=== PATIENT | male | born 1960 | race African-American/Black ===

== ENCOUNTER 2025-02-27 18:25 | Inpatient (IN) | payer OTHER, SELFPAY ==
[2025-02-27] VITALS (21 sets, daily range): BP systolic 137–174; BP diastolic 91–134; BMI 39.8; BMI 40.9
--- NOTE | 2025-02-27 13:55 | ED.GENMED ---
History of Present Illness
General
Chief Complaint: Cough
Source: patient
Exam Limitations: none
Time Seen by Provider: 02/27/25 13:46
History of Present Illness
History of Present Illness:
64-year-old male complaining ongoing cough some shortness of breath over the last weeks. No fever no chest pain no other complaints. However some chest pain with coughing only. Patient has history of hypertension. Does not take his meds.
Past History
Past History
ED Past Medical History: HTN
Social History
Tobacco: Non-smoker
Living: with family
Review of Systems
Review of Systems
All Other Systems: Not applicable
Constitutional: Denies fever
Respiratory: Denies hemoptysis
ABD/GI: Reports no symptoms
Phy Exam
Physical Exam
Physical Exam:
GENERAL: Alert and oriented in no apparent distress
EYE: Orbits normal.
NECK: Supple, no significant adenopathy.
ENT: Pharynx without erythema. No drooling no stridor. Slight hoarseness to his voice
CARDIAC: Regular rate and rhythm without any obvious murmurs.
LUNGS: Slight distant breath sounds with mild expiratory wheezing and rhonchi. No retractions no distress
ABDOMEN: Soft, without focal tenderness or distention. Elevated BMI
NEUROLOGICAL: Alert and oriented , grossly non-focal
SKIN: Warm and dry, no rash or lesion, no discoloration, skin intact.
MUSCULOSKELETAL: No edema,no deformity.Good color
PSYCH: Normal and appropriate interaction.
Course
Orders/Labs/Results
Orders:
Orders
02/27/25 11:59
EKG [Electrocardiogram (*1)] Urgent
Reason for Study: Chest Pain
EKG- Treatment ONCE
02/27/25 14:08
CBC/With Diff [Complete Blood Count/With Diff] Urgent
COVID-19 Antigen Urgent
Source: Nasal Swab
Comprehensive Metabolic Panel Urgent
Magnesium Urgent
Comment: ADD ON
Influenza A+B Rapid Molecular Urgent
MINO Source: Nasal Swab
Specimen Description:
02/27/25 14:47
CXR2 [CR Chest - 2 Views ] Urgent
Comment:
Reason For Exam: cough
02/27/25 Dinner
Cholesterol Lowering
At Your Request: Limited Participation
Cholesterol Lowering: Sodium, 2 Gram
02/27/25 16:57
Labetalol HCl [Trandate] 10 mg IV NOW STA
02/27/25 17:12
NT-proBNP Urgent
Comment: ADD ON
Troponin I Urgent
02/27/25 17:30
Admit/Transfer Patient As Directed
Co-Sign Provider:
Level of Care: Inpatient admission
Assign to:: IMU- Intermediate Care
Physician / Group: hospitalist--Carlos
Diagnosis: cough
Reason for Hospitalization: HTN requiring IV meds-cardiac and pulm workup
Expected length of stay greater than two midnights?: Yes
ELOS- Estimated Length of Stay in days: 3
I certify the patient meets the requirements for IP care: Yes
PRN Pain Medication Management As Directed
May give lesser potent ordered pain med per pt: Yes
preference::
Protocol:: Medication orders for pain may be administered in a
manner that supports deferring to patient preference
when the pt is:
- Requesting an ordered lesser potent pain medication.
Least to most potent pain medications are defined
as: acetaminophen < NSAID < tramadol < opioids
(morphine, oxycodone, hydromorphone).
- Requesting a lesser dose of the same medication IF
ORDERED.
- Requesting a less intrusive route of administration
if both routes are prescribed by the provider (PO <
IV).
02/27/25 17:31
Code Status As Directed
Resuscitation Status: Full Code
02/27/25 17:36
Add On- LAB Stat
Comments:: Please add to specimen already in lab. Thanks!
Tests Added?: Magnesium and BNP
02/27/25 19:48
Electrocardiogram (*1) Q6H
Reason for Study: Chest Pain
Comment: at admission and Q6H x 2 (3 total), to be done with each troponin
Troponin I Q6H
Comment: at admission & every 6 hours x 2 (3 total), ECG to be done with each level
Enoxaparin Sodium [Lovenox] 40 mg SC QPM
Furosemide [Lasix] 40 mg IV BID AT 0800,1600
02/27/25 19:48
Echo 2D MMode Color/Doppler Routine
Reason for Study: heart failure
HF DIETARY CONSULT Routine
HF EDUCATOR CONSULT Routine
Comment:
Activity As Directed
Activity Level: Out of Bed-Early Mobility
Intake/ Output As Directed
Frequency: Per unit guidelines
Old Records Request [Obtain Records] As Directed
Dates of Information to be Released: last 2-3 months
Type of Information Requested: Discharge Summary
ECG/Cardiology Results
H&P
Obtain Records from: [facility]
Patient Education As Directed
Type: CHF folder
Comment: give on admission. Document in Interdisciplinary Education record
Sleep Apnea Assessment by RN As Directed
Comment:
Physician Instructions:
Vital Signs As Directed
Frequency: Other
Additional Instructions:: Q12 or per unit guidelines if more frequent.
Weight As Directed
Frequency: Daily
Type of Scale: Standing Scale
Comment: Daily morning weight. If unable to stand, use balanced bed scale.
Weight As Directed
Frequency: Once
Type of Scale: Standing Scale
Comment: Upon Admission. If unable to stand, use balanced bed scale.
Pulse Ox/cont/shift [RESP] Routine
Quantity: 1
Special Instructions: Daily pulse oximetry at rest. If greater than 92% at rest also obtain pulse oximetry
while ambulating as tolerated.
Pulse Ox/nocturnal-trend w prt [RESP] Routine
Quantity: 1
Desired Oxygen Setting: >93%
Pt Eval And Treat Routine
Activity Level: Out of Bed-Early Mobility
DX Deep Vein Thrombosis Video Routine
02/28/25 01:48
Electrocardiogram (*1) Q6H
Reason for Study: Chest Pain
Comment: at admission and Q6H x 2 (3 total), to be done with each troponin
Troponin I Q6H
Comment: at admission & every 6 hours x 2 (3 total), ECG to be done with each level
02/28/25 06:00
Cardiovascular Evaluation IN AM
Complete Blood Count/No Diff IN AM
Comprehensive Metabolic Panel IN AM
Magnesium IN AM
NT-proBNP IN AM
TSH Reflex To Free T4 IN AM
US Renal Artery IN AM
Comment:
Reason For Exam: uncontrolled HTN
02/28/25 07:48
Electrocardiogram (*1) Q6H
Reason for Study: Chest Pain
Comment: at admission and Q6H x 2 (3 total), to be done with each troponin
Troponin I Q6H
Comment: at admission & every 6 hours x 2 (3 total), ECG to be done with each level
Abnormal Lab Results
02/27/25
14:08
MCV 76.6 L fL
(80.0-94.0)
MCH 26.9 L pg
(27.0-31.0)
MPV 11.6 H fL
(7.4-10.4)
Total Bilirubin 2.6 H mg/dl
(0.2-1.3)
02/27/25 14:08
02/27/25 14:08
Vital Signs
Initial and Last Documented VS:
Initial Vital Signs
Temp Pulse Resp BP Pulse Ox
98 F 85 16 160/118 96
02/27/25 12:05 02/27/25 12:05 02/27/25 12:05 02/27/25 12:05 02/27/25 12:05
Last Documented Vital Signs
Temp Pulse Resp BP Pulse Ox
98.2 F 69 14 152/134 98
02/27/25 16:22 02/27/25 19:47 02/27/25 19:47 02/27/25 19:47 02/27/25 19:47
MDM/Problems Addressed
Differential Diagnosis Includes:
Patient complaining of 4 days of cough. In the triage note said 4 weeks per patient states 4 days worse at night. Difficulty sleeping. Chest pain and shortness of breath with coughing but not at baseline. Does not take any current medications.
Is poor at seeing physicians. No hemoptysis no pleuritic pain
*Pulse Oximetry
SaO2: 90
Oxygen Mode of Delivery: Room air
Patient hypoxic: no
*EKG
Interpreted by ED Provider?: Yes
Interpretation: abnormal
Comparison EKG: no comparison EKG present
Heart Rate: 85
Rate: normal
Rhythm: sinus
[place]: left axis deviation
Interval: normal interval
QRS Pattern: normal QRS
Ischemia: non-specific ST changes
*Critical Care Note
Total Time (30-74mins, 75-104mins- exclusive of procedures): Not Applicable
Update Note
Update Note:
Patient with ongoing significant diastolic hypertension. Cardiomegaly on x-ray. Warrants inpatient management. Interestingly after admission he had a brief run of V. tach. This was communicated with the admitting hospitalist by the nurse
ED Attending Note
-
Portions of this chart may have been created with voice recognition software.� Occasional wrong word or��sound alike� substitutions may have occurred due to the inherent limitations of voice recognition software.
Discharge Plan
Departure
Patient Disposition: Admit
Date of Disposition: 02/27/25
Time of Disposition: 16:59
Presentation/result/management discussed w/ accepting MD/DO: Hospitalist
Discharge Problem:
Hypertensive urgency, Cardiomegaly, Episode of ventricular tachycardia
Interventions
Interventions:
*Risk Screen - Suicide Last Done: 02/27/25 12:07
*General Assessment Last Done: 02/27/25 13:54
*Neglect/Abuse Screening Last Done: 02/27/25 12:07
*ED- Fall Risk Assessment Last Done: 02/27/25 13:54
*ED COVID-19 Vaccine History Last Done: 02/27/25 13:54
*Nursing Disposition Last Done: 02/27/25 19:15
ED- Pulmonary Assessment Last Done: 02/27/25 17:03
Discharge Date and Time
Discharge Date/Time: 02/27/25 19:58
[2025-02-27 14:17] LABS: Hematocrit 41.5 % (39.0-52.0); Hemoglobin 14.6 g/dL (13.0-18.0); Mean Corp Hgb Conc. 35.2 g/dL (33.0-37.0); Mean Corpuscular Volume 76.6 fL (80.0-94.0); Nucleated Red Blood Cells % 0 % (-); Platelet Count 217 10^3/uL (130-400); Red Cell Dist. Width 14.4 % (11.5-14.5)
[2025-02-27 14:40] LABS: ALT (SGPT) 37 U/L (0-50); AST (SGOT) 31 U/L (17-59); Albumin 4.0 g/dl (3.5-5.0); Alkaline Phosphatase 88 U/L (38-126); Blood Urea Nitrogen 13 mg/dl (9-20); Calcium 8.9 mg/dl (8.4-10.2); Carbon Dioxide 27 mmol/L (22-30); Chloride 107 mmol/L (98-107); Estimated Creatinine Clearance 104 ml/min; Glucose 95 mg/dl (70-99); Potassium 3.8 mmol/L (3.5-5.1); Sodium 141 mmol/L (135-145); Total Protein 6.5 g/dl (6.3-8.2); eGFR > 60.00
[2025-02-27 14:43] LABS: COVID-19 Antigen Negative (Negative)
[2025-02-27] MEDS: TRANDATE 10 MG IV (17:16)
--- NOTE | 2025-02-27 17:37 | HPS.HSE ---
Family Physician
-
Family Physician: None listed
Chief Complaint
-
Cough and shortness of breath
History of Present Illness
Patient is a 64-year-old male with a past medical history significant for presumed essential hypertension who states that he has been coughing for few weeks with yellow phlegm. Patient states that he is also short of breath and cannot lie flat in
bed. He states that he has been cold but no fevers. It is unclear if he has had any weight gain, he denies, but his brbfts-uz-nhs states that he has had some. She states that he is better during the day but not at night when he lies down. She
has been giving him cough medicine which is not helping. She also states that he was hospitalized at [facility] approximately a month to a month and a half ago and had a stress test which was reportedly normal.
She also states that he does have a medical card but his insurance apparently has been cut off for an unknown reason. His [id number] Nery (goes by [employer]) has been actively working to get his medical card reinstated.
He is found to have hypertensive urgency and is being admitted.
Medical History
Past Medical History
Past Medical History: Reports HTN
Past Surgical History: Reports Other
Additional Past Surgical History:
Hip fracture status post repair with a plate
Social History
Tobacco: Non-smoker
Alcohol: None
Drug: None
Living: With Family
Family History
Family History: Cancer
Allergies / Home Medications
Allergies reflects when Allergies were last updated in [employer].
Home Medications with original date entered in [employer]
Allergy/Medication List:
Allergies
Allergy/AdvReac Type Severity Reaction Status Date / Time
Penicillins Allergy Swelling Verified 02/27/25 17:16
Patient takes no medications at home.
Review of Systems
-
History Source: Patient and Family
A 12 point ROS was completed and negative except as noted: Yes
Constitutional: Reports Chills; Denies Fever
EENT: Reports No Symptoms
Respiratory: Reports Cough, Trouble Breathing and Other (Yellow phlegm)
Cardiac: Reports Chest Pain (Patient states it feels like someone is 'hitting him in the chest'); Denies Palpitations
Abdomen/GI: Reports Constipated; Denies Abdominal Pain, Nausea, Vomiting or Diarrhea
: Reports No Symptoms
Musculoskeletal: Reports Edema
Skin: Reports No Symptoms
Neurological: Reports Headache; Denies Dizzy
Psych: Reports No Symptoms
Physical Exam
Vital Signs
Vital Signs
Temp Pulse Resp BP Pulse Ox
98.2 F 93 20 144/105 100
02/27/25 16:22 02/27/25 17:16 02/27/25 17:15 02/27/25 17:22 02/27/25 17:15
Physical Exam
General: Well Developed, Well Nourished, No Apparent Distress and Other (Appears to have some developmental delay)
HEENT: NormoCephalic, Anicteric and Atraumatic; No Oxygen
Respiratory: Clear and Other (Cough); No Wheezes, Rales, Rhonchi or Crackles
Cardiac: S1/S2 and Regular Rhythm; No Murmur
GI: Soft, Non Tender, Non Distended and Normal Bowel Sounds
Musculoskeletal: No Clubbing and No Cyanosis; No No Edema (Trace to 1+ edema bilaterally)
Skin: Warm
Neuro: Awake
Psych: Calm
Laboratory Results
-
02/27/25 14:08
02/27/25 14:08
Laboratory Results
Total Bilirubin 2.6 mg/dl (0.2-1.3) H 02/27/25 14:08
AST 31 U/L (17-59) 02/27/25 14:08
ALT 37 U/L (0-50) 02/27/25 14:08
Alkaline Phosphatase 88 U/L (38-126) 02/27/25 14:08
Impression/Plan
-
Patient is a 64-year-old male
Hypertensive urgency--patient's family member states he does have a history of hypertension and should be on an 'orange pill' which he is not taking--blood pressure has been ranging here 140s to 160s systolic over greater than 100 diastolic--ADMIT
to IMU--received IV labetalol and starting IV Lasix--check echocardiogram as heart appears enlarged on chest x-ray--pro-BNP 4890--may need another BP med as well--check renal US for renal artery stenosis--trend troponin
cough--no signs of pneumonia, white count normal, no fevers--could be mild congestive heart failure especially since worse at night with elevated proBNP--COVID and flu are negative--I see no need for antibiotics at this time--Will add nebulizers to
see if that will help--patient claims he has a history of asthma--he is not hypoxic--Will also check nocturnal pulse ox as patient has a body habitus consistent with obstructive sleep apnea
DVT prophylaxis--subcu Lovenox
CODE STATUS--full code
Of notepatient's [id number] Nery ([phone]) is who he lives with--and has knowledge of his medical history--states that he was in [facility] approximately 1 to 1-1/2 months ago and had a 'negative workup' including cardiac catheterization
at that time--will try to get records
[2025-02-27 17:43] LABS: Troponin I 0.016 ng/ml
[2025-02-27 18:13] LABS: Magnesium 1.8 mg/dl (1.6-2.3)
[2025-02-27] MEDS: LOVENOX 40 MG SC (20:01)
[2025-02-27] MEDS: LASIX 40 MG IV (20:01)
[2025-02-27 21:31] LABS: Troponin I 0.018 ng/ml
[2025-02-28] VITALS (16 sets, daily range): BP systolic 93–169; BP diastolic 67–127; PULSE 99; O2SAT 94; BMI 40.9
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
[2025-02-28 04:45] LABS: Hematocrit 38.8 % (39.0-52.0); Hemoglobin 14.0 g/dL (13.0-18.0); Mean Corp Hgb Conc. 36.1 g/dL (33.0-37.0); Mean Corpuscular Volume 75.9 fL (80.0-94.0); Platelet Count 213 10^3/uL (130-400); Red Cell Dist. Width 14.3 % (11.5-14.5)
[2025-02-28 04:55] LABS: Troponin I 0.018 ng/ml
[2025-02-28] MEDS: TYLENOL 650 MG PO (05:54)
[2025-02-28 06:22] LABS: ALT (SGPT) 32 U/L (0-50); AST (SGOT) 29 U/L (17-59); Albumin 3.5 g/dl (3.5-5.0); Alkaline Phosphatase 68 U/L (38-126); Blood Urea Nitrogen 13 mg/dl (9-20); Calcium 8.8 mg/dl (8.4-10.2); Carbon Dioxide 28 mmol/L (22-30); Chloride 109 mmol/L (98-107); Estimated Creatinine Clearance 99 ml/min; Glucose 88 mg/dl (70-99); HDL Cholesterol 43 mg/dl; LDL Cholesterol, Calculated 78 mg/dl; Magnesium 1.8 mg/dl (1.6-2.3); Potassium 3.9 mmol/L (3.5-5.1); Sodium 141 mmol/L (135-145); Total Protein 5.9 g/dl (6.3-8.2); Very Low Density Lipoprotein 8 mg/dl (0-30); eGFR > 60.00
[2025-02-28 07:57] LABS: Hepatitis C Antibody Negative (Negative)
[2025-02-28 09:17] LABS: Troponin I 0.017 ng/ml
[2025-02-28] MEDS: LIDOCAINE 4% PATCH 1 PATCH TOPICAL (09:41)
[2025-02-28] MEDS: APRESOLINE 5 MG IV (09:42)
[2025-02-28] MEDS: LASIX 40 MG IV ×2 (09:47→17:30)
--- NOTE | 2025-02-28 11:11 | CM ---
Addendum entered by Luzmaria Meraz 02/28/25 16:52:
Patient brother came to and has POA forms and will bring to hospital tomorrow. Patient cost for medications 1$ for entresto limit of 6 pills daily and 3$ for farxiga and Jaridance limit 30 pills monthly; per month. Plan for patient to return to
patient home with sister in law, will need to send referral to [facility] for follow up of assessment/possible waiver services. CM will continue to follow for discharge planning needs.
Original Note:
Patient seen at bedside with physician in IMU. Patient and sister in law, granddaughter all present. Patient lives with his sister in law in [place] and stated she states the home is a 2 story. Patient had a CPAP but does not use at this time. Patient
is active with Annette moya per [facility] and CM updated patient sister in law. Patient is changing physicians per patient sister in law, and so does not have a current physician. Patient uses the [facility] in [place]. Patient brother Chepe
was contacted by sister in law and he stated that he is coming in to see patient here. Patient brother alleged to have a POA, CM requested POA documentation be brought in. Per nursing patient verbalized that he had concerns about sister in law.
Patient sister in law indicated that she wanted to take patient out of hospital and go to [facility] now that he had insurance. When patient was talking to physician he did not indicate that he wanted to leave a but patient shrugged
shoulders and did not answer. Patient has been living with his sister in law for the last 5/6 years but has indicated to her that he would like to live with his brother but brother is currently unable to care for him per sister in law. CM asked
about services and per sister in law they were going to go to [facility] but patient insurance was cut off. Sister in law indicated that she would be happy to have CM send referral to [facility] for review of services. CM will send referral to [facility] for assessment.
CM will continue to follow for discharge planning needs.
Plan; home with family referral to [facility] for services/assessment vs VN pending medical treatment plan
--- NOTE | 2025-02-28 11:14 | CARDSERVDEF ---
Echocardiogram with Definity completed after protocol screening completed. Allergies verified.
Patent IV site: _left AC____
IV site flushed with 0.9% NaCl pre and post administration.
Diluted bolus method utilized to enhance visualization of ventricular allen.
Total volume given: __2.0__ mL
Patient tolerated all procedures well without complications.
--- NOTE | 2025-02-28 11:19 | W.PN.HOSP.TC ---
Today's Communication/Plan
-
added IV hydralazine
await ECHO and renal US reports
cont IV diuresis
Assessment / Plan
Assessment / Plan
pt is a 64 year old male
Hypertensive urgency--patient's family member states he does have a history of hypertension and should be on an 'orange pill' which he is not taking--blood pressure has been ranging here 140s to 160s systolic over greater than 100
diastolic--received IV labetalol and starting IV Lasix--echocardiogram pending--pro-BNP 4890--may need another BP med as well--renal US pending for renal artery stenosis--trend troponin
cough--no signs of pneumonia, white count normal, no fevers--could be mild congestive heart failure especially since worse at night with elevated proBNP--COVID and flu are negative--I see no need for antibiotics at this time----patient claims he has
a history of asthma--he is not hypoxic-- nocturnal pulse ox showed 1 desaturation event of < 88%--patient has a body habitus consistent with obstructive sleep apnea, family states he should be using CPAP but pt says they took him off of it
DVT prophylaxis--subcu Lovenox
CODE STATUS--full code
Of notepatient's [id number] Nery ([phone]) is who he lives with--and has knowledge of his medical history--states that he was in [facility] approximately 1 to 1-1/2 months ago and had a 'negative workup' including cardiac catheterization
at that time--will try to get records
She is at the bedside (02/28/25) and here to take him to [facility] where his doctors are, explained he is not ready and any discharge would be AMA (he does not qualify for inpt to inpt transfer)--when I asked pt what he wanted to do (stay or go), he
shrugged his shoulders and wouldn't answer
Anticipated Discharge: 24 - 48 hours
Subjective/Interval History
-
Date of Service: February 28, 2025
pt family at bedside--stating 'we came to take him to [facility] to admit him there'
He makes faces at me (as if disgusted with his family who is visiting) when she speaks
Objective Data
-
Labs:
Laboratory Results
02/28/25
04:09
WBC 5.2
Hgb 14.0
Hct 38.8 L
Plt Count 213
Sodium 141
Potassium 3.9
Chloride 109 H
Carbon Dioxide 28
BUN 13
Creatinine 1.0
Glucose 88
Calcium 8.8
Total Bilirubin 2.8 H
AST 29
ALT 32
Alkaline Phosphatase 68
Vital Signs:
max temp for 24 hours
02/27/25
13:48 02/28/25
02:37 02/28/25
04:56
Temp 98.7 F
Actual Weight 129.4 kg 125.673 kg
Vital Signs
Temp Pulse Resp BP Pulse Ox
97.7 F 91 21 144/92 96
02/28/25 11:01 02/28/25 11:00 02/28/25 11:00 02/28/25 11:00 02/28/25 10:00
I&O
02/27/25 02/28/25 03/01/25
06:59 06:59 06:59
Output Total 3100 / 3100
Balance -3100 / -3100
Review of Systems
-
All other systems: Reviewed and negative
Respiratory: Reports Cough and Trouble Breathing
Physical Exam
-
General: Well Developed, Well Nourished and No Apparent Distress
HEENT: Normocephalic and Atraumatic; Negative Oxygen
Respiratory: Clear to Auscultation; Negative Wheezes, Rales, Rhonchi or Crackles
Cardiac: Regular Rhythm and S1/S2; Negative Murmur
GI: Soft, Nontender, Nondistended and Normal Bowel Sounds
Musculoskeletal: No Clubbing, No Cyanosis and No Edema
Neuro: Awake and Alert
Psych: Calm
--- NOTE | 2025-02-28 11:50 | CON.CAR ---
Addendum entered and electronically signed by LIU Barraza 02/28/25 15:59:
Per CDI query:
Patient has HFrEF, acute on chronic
Addendum entered and electronically signed by Se Stark MD 02/28/25 15:28:
I saw and evaluated the patient, and I provided the substantive portion of the medical decision making.
I reviewed and agree with the note by Eva Fisher and it accurately reflects our care.
I personally performed the medical decision making of the this encounter and my assessment and plan is below:
64-year-old male with hypertension, heart failure (type unknown), and ERIN who presented to the ER with a chief complaint of shortness of breath.
He was recently at [facility] with similar symptoms and was diuresed. However, it appears that he may not have continued the d/c medications. It also sounds that he had a stress test and was diagnosed with a NICMO from that.
Regardless, we may consider heart cath this admission.
For now we will cont IV diuresis and add on GDMT with case management pricing Entresto and sglt2i.
Original Note:
Consultation
Consultation Request
Date/Time Consultation Requested: 02/28/2025 11:40
Date/Time Consultation Performed: 02/28/2025 12:00
Requesting Provider: Dr. Gonzalez
Performing Provider: LIU Lowe for Dr. Stark
Reason for Consultation: Cardiomyopathy
Medical History
-
Chief Complaint: Shortness of breath
History of Present Illness:
Lionel Swenson is a 64-year-old male with hypertension, heart failure (type unknown), and ERIN who presented to the ER with a chief complaint of shortness of breath. He endorsed productive cough for yellow sputum. This has been ongoing for few
weeks. He endorsed orthopnea. No fevers at home. He was admitted with hypertensive urgency. An echocardiogram was ordered, he was found to have an LVEF of 20-25%. He had a recent admission at [facility] where he had an invasive cardiac workup
including cardiac catheterization. These records have been requested. He is not having any chest pain, shortness of breath, nor dizzines.
Past Medical History
Past Medical History: CHF (Type unknown), HTN and Other (ERIN)
Past Surgical History: Orthopedic
Social History
Tobacco: Non-Smoker
Alcohol: None
Family History
Family History: Reviewed & Not Pertinent
Allergies / Home Medications
Allergy/AdvReac Type Severity Reaction Status Date / Time
Penicillins Allergy Swelling Verified 02/27/25 17:16
Review of Systems
-
History Source: Patient
All other systems: Negative unless noted
Constitutional: Weight Gain and Fatigue
EENT: No Symptoms
Respiratory: Cough and Trouble Breathing
Cardiac: No Symptoms
Abdomen/GI: No Symptoms
: No Symptoms
Musculoskeletal: Edema
Skin: No Symptoms
Neurological: No Symptoms
Endocrine: No Symptoms
Hematologic/Lymphatic: No Symptoms
Physical Exam
Vital Signs
Temp Pulse Resp BP Pulse Ox
97.7 F 91 21 144/92 96
02/28/25 11:01 02/28/25 11:00 02/28/25 11:00 02/28/25 11:00 02/28/25 10:00
Lab Results
02/28/25 04:09
02/28/25 04:09
Troponin I 0.017 ng/ml 02/28/25 08:15
Xwr-M-Pufvktkbead Pept 4890 pg/ml 02/27/25 17:12
Physical Exam
General: Well Developed, Well Nourished, No Apparent Distress and Comfortable
HEENT: Normocephalic, Anicteric and Moist Mucous Membranes
Respiratory: Clear and Non Labored Respirations
Cardiac: S1/S2
Breast: Deferred by me
GI: Soft, Non Tender, Non Distended and Normal Bowel Sounds
Rectal: Deferred by Provider
Genito-urinary: No Costovertebral Tender
Musculoskeletal: No Clubbing and No Cyanosis
Skin: Warm and Dry
Neuro: Awake and Alert
Hematologic/Lymphatic: No Lymphadenopathy
Psych: Calm
Impression / Plan
-
I/P: 64M with hypertension, heart failure (type unknown), and ERIN who presented to the ER with a chief complaint of shortness of breath.
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
Dilated cardiomyopathy (EF 20-25%) - severe, requiring hospitalization
- Elevated proBNP with complains of orthopnea, continue diuresis with furosemide 40 mg IV twice daily this requires intensive monitoring
- Severely dilated LV and dilated RV
- Reportedly had a cardiac catheterization without acute findings at [facility], this has been requested
- GDMT as tolerated:
-ELENITA/ARB/ARNI: Start valsartan 40 mg twice daily, case management to moralez sacubitril�valsartan
-SGLT2 inhibitor: Case management to moralez
-Aldosterone agonist: Can consider
-Beta milla: Start carvedilol 6.25 mg twice daily
-Isosorbide/Hydralazine:�Defer for now
-ICD: Reassess LVEF in 3 months for determination
- Trend daily weight, I/O, and BMP with diuresis and changes in medical therapy
Hypertensive urgency
- Uncontrolled hypertension at home
- Stop hydralazine 5 mg every 4 hours
- BP management as above
Dilated aortic root, 4.2 cm
ERIN, nonadherent with CPAP
Obesity, BMI 40, he would benefit from weight loss
Data Reviewed
-
EKG: Report Reviewed by me
Radiology: Report Reviewed by me
Labs: Labs Reviewed by me
Old Records: Requested
--- NOTE | 2025-02-28 12:09 | W.PN.UPDATE ---
Update Note
Progress Note Update
ECHO with EF 20-25%
consult cards
cont diuresis
[2025-02-28] MEDS: APRESOLINE IV (12:28)
[2025-02-28] MEDS: COREG 3.125 MG PO (12:39)
[2025-02-28] MEDS: DIOVAN 40 MG PO ×2 (12:39→20:31)
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
--- NOTE | 2025-02-28 15:16 | PN.CDI ---
CDI
- -
CDI:
Physician Documentation Request
Admit Date: 02/27/25 18:25
Dear Doctor /STOKER MECHANIC ,
Please review the following and provide your response in the progress notes.
Clinical Indicators:
Pt admitted with HTN urgency/ CHF
ECHO 02/28, ' LVEF is 20-25% by visual estimation..'
Cardiology consult, ' , heart failure (type unknown)....Dilated cardiomyopathy (EF 20-25%) Elevated proBNP with complains of orthopnea, continue diuresis with furosemide 40 mg IV twice daily...Past Medical History: CHF (Type unknown)...'
Please provide further specificity regarding the most likely type and acuity of CHF you are evaluating, treating or monitoring.
Acute on Chronic Systolic CHF
Acute Diastolic CHF
Other ( please specify)
Use of terms such as suspected, likely, concern for, or probable (associated with a specific diagnosis that is being evaluated, monitored, or treated as if it exists) are acceptable and can be coded in the inpatient setting, when documented at the
time of discharge.
Thank you,
Liliya Sin RN
CDI Specialist
[facility]
Please use your independent medical judgment in providing your response.
[2025-02-28] MEDS: OMNIPAQUE 50 ML PO (17:27)
[2025-02-28] MEDS: LOVENOX 40 MG SC (17:32)
[2025-02-28] MEDS: COREG 6.25 MG PO (20:30)
[2025-02-28] MEDS: COLACE 100 MG PO (20:30)
[2025-02-28] MEDS: REMOVE LIDOCAINE PATCH 1 PATCH REMOVE (20:31)
[2025-03-01] VITALS (13 sets, daily range): BP systolic 101–165; BP diastolic 35–129; PULSE 71; BMI 39.4
--- NOTE | 2025-03-01 00:28 | PTCARENOTE ---
transported patient via stretcher to CT without issue. Relayed CT results to ROLL FORMING MACHINE SET UP OPERATOR. New orders of NPO placed. Surgery consult ordered. Patient did have small bowl movement on commode after CT scan. Assessment and vital signs as charted. Call beltre in
reach.
--- NOTE | 2025-03-01 02:41 | W.PN.UPDATE ---
Addendum entered and electronically signed by LIU Vargas (Linda) 03/01/25 02:54:
No N/V of abdominal pain.
Original Note:
Update Note
Progress Note Update
02/28/25 CT ab/pelv
Impression: There is diffuse gaseous distention of the small bowel and colon most pronounced in the sigmoid colon. There is distal tapering without definite obstructing mass or volvulus. Findings are favored to represent an ileus. A follow-up
colonoscopy should be considered to exclude a mass.
Cardiomegaly with dilation of the left ventricle.
Assessed patient on the unit. Patient AAOX3, reports he has been having 'stomach issues for a long time' Patient reports he just had small bowel movement after the CT scan. Abdomen hypoactive and distant.
Rx NPO, Sx consulted.
Patient also noted to have bradycardia and bouts of hypoxia. Patient known to have ERIN, Rx O2.
Updated plan to patient and RN
[2025-03-01 04:36] LABS: Hematocrit 41.1 % (39.0-52.0); Hemoglobin 14.7 g/dL (13.0-18.0); Mean Corp Hgb Conc. 35.8 g/dL (33.0-37.0); Mean Corpuscular Volume 75.3 fL (80.0-94.0); Platelet Count 212 10^3/uL (130-400); Red Cell Dist. Width 14.0 % (11.5-14.5)
[2025-03-01 05:04] LABS: ALT (SGPT) 34 U/L (0-50); AST (SGOT) 26 U/L (17-59); Albumin 3.6 g/dl (3.5-5.0); Alkaline Phosphatase 75 U/L (38-126); Blood Urea Nitrogen 16 mg/dl (9-20); Calcium 8.8 mg/dl (8.4-10.2); Carbon Dioxide 28 mmol/L (22-30); Chloride 105 mmol/L (98-107); Estimated Creatinine Clearance 81 ml/min; Glucose 89 mg/dl (70-99); Magnesium 1.7 mg/dl (1.6-2.3); Potassium 3.7 mmol/L (3.5-5.1); Sodium 138 mmol/L (135-145); Total Protein 6.2 g/dl (6.3-8.2); eGFR > 60.00
--- NOTE | 2025-03-01 06:13 | PTCARENOTE ---
patient heart rate dropping into 30s. Patient is asymptomatic. TT HELMINTHOLOGIST. EKG done, troponin added and drawn. Changed patient's heart monitor leads. Patient is in NSR, will occasionally go into ventricular bigeminy. HELMINTHOLOGIST aware. pulse ox stable on 2L.
continuing to monitor. call beltre in reach.
[2025-03-01 06:16] LABS: Troponin I 0.020 ng/ml
[2025-03-01] MEDS: COLACE PO ×2 (08:15→19:55)
[2025-03-01] MEDS: DIOVAN PO ×2 (08:15→19:56)
[2025-03-01] MEDS: COREG PO ×2 (08:15→18:59)
[2025-03-01] MEDS: LIDOCAINE 4% PATCH 1 PATCH TOPICAL (08:15)
[2025-03-01] MEDS: LASIX 40 MG IV ×2 (08:20→17:42)
[2025-03-01] MEDS: MIRALAX PO (08:23)
--- NOTE | 2025-03-01 08:40 | W.PN.HOSP.TC ---
Today's Communication/Plan
-
transfer to IVU
cont diuresis
OOB, ambulate
meds for BPs
Assessment / Plan
Assessment / Plan
pt is a 64 year old male
Hypertensive urgency-- much improved---received IV labetalol in ED-- cont IV Lasix--echocardiogram with EF 20-25%--pro-BNP 4890--coreg and valsartan started--renal US neg for renal artery stenosis
'new?' onset HFrEF--with exacerbation presented as cough--cont diuresis--coreg and valsartan started--transfer to IVU--had cardiac cath at [facility] < 2 months ago--awaiting records-- priced meds for d/c when ready--weights down from 129.4kg on
admission to 120.8kg today 03/01/25 (18.9 lbs off to date)
ERIN--supposed to be using CPAP--will consult respiratory--consider pulm consult
ileus--by x-ray and CT scan--no obstruction--OOB, ambulate--NPO for now
obesity--affects all aspects of care
DVT prophylaxis--subcu Lovenox
CODE STATUS--full code
02/28/25 spoke with pt brother Chepe (pt POAntwan, bringing paperwork today) and [id number] Nery--all now in agreement to keep patient here until medically stable for d/c
pt with some type of developmental delay--family states that he cannot make his own decisions.....
Anticipated Discharge: > 48 hours
Subjective/Interval History
-
Date of Service: March 01, 2025
pt doing OK--hungry--says he is passing gas and had BM yesterday 02/28
Objective Data
-
Labs:
Laboratory Results
03/01/25
04:18
WBC 6.2
Hgb 14.7
Hct 41.1
Plt Count 212
Sodium 138
Potassium 3.7
Chloride 105
Carbon Dioxide 28
BUN 16
Creatinine 1.2
Glucose 89
Calcium 8.8
Total Bilirubin 2.9 H
AST 26
ALT 34
Alkaline Phosphatase 75
Vital Signs:
max temp for 24 hours
02/28/25
22:28
Temp 98.2 F
Vital Signs
Temp Pulse Resp BP Pulse Ox
98.1 F 79 25 124/97 97
03/01/25 01:49 03/01/25 08:00 03/01/25 08:00 03/01/25 08:00 03/01/25 08:00
I&O
02/28/25 03/01/25 03/02/25
06:59 06:59 06:59
Output Total 3100 / 3100 1700 / 1700
Balance -3100 / -3100 -1700 / -1700
Review of Systems
-
All other systems: Reviewed and negative
Physical Exam
-
General: Well Developed, Well Nourished and No Apparent Distress
HEENT: Normocephalic and Atraumatic; Negative Oxygen
Respiratory: Clear to Auscultation; Negative Wheezes or Rhonchi
Cardiac: Regular Rhythm and S1/S2; Negative Murmur
GI: Soft, Nontender, Distended and Other (tympanitic); Negative Normal Bowel Sounds (hypoactive)
Musculoskeletal: No Clubbing, No Cyanosis and No Edema
Skin: Warm
Neuro: Awake
--- NOTE | 2025-03-01 09:25 | W.PN.CD ---
Today's Communication / Plan
-
IV diuresis start sglt2i tomorrow
Impression / Plan
-
I/P: 64M with hypertension, heart failure (type unknown), and ERIN who presented to the ER with a chief complaint of shortness of breath.
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
Dilated cardiomyopathy (EF 20-25%) - severe, requiring hospitalization
- Elevated proBNP with complains of orthopnea, continue diuresis with furosemide 40 mg IV twice daily this requires intensive monitoring
- Severely dilated LV and dilated RV
- Reportedly had a cardiac catheterization without acute findings at [facility], this has been requested
- GDMT as tolerated:
-ELENITA/ARB/ARNI: Start valsartan 40 mg twice daily, case management to moralez sacubitril�valsartan
-SGLT2 inhibitor: Case management to moralez
-Aldosterone agonist: Can consider
-Beta milla: Start carvedilol 6.25 mg twice daily
-Isosorbide/Hydralazine:�Defer for now
-ICD: Reassess LVEF in 3 months for determination
- Trend daily weight, I/O, and BMP with diuresis and changes in medical therapy
Hypertensive urgency
- Uncontrolled hypertension at home
- Stop hydralazine 5 mg every 4 hours
- BP management as above
Dilated aortic root, 4.2 cm
ERIN, nonadherent with CPAP
Obesity, BMI 40, affects all aspects of care he would benefit from weight loss
Subjective: breathing improved
Physical Exam
Vital Signs/Labs
Vital Signs
Temp Pulse Resp BP Pulse Ox
97.5 F 79 25 124/97 97
03/01/25 07:57 03/01/25 08:00 03/01/25 08:00 03/01/25 08:00 03/01/25 08:00
02/28/25 03/01/25 03/02/25
06:59 06:59 06:59
Actual Weight 277 lb 1 oz 266 lb 5.094 oz
03/01/25 04:18
03/01/25 04:18
Magnesium 1.7 mg/dl (1.6-2.3) 03/01/25 04:18
Triglycerides 43 mg/dl (10-149) 02/28/25 04:09
LDL Cholesterol, Calc 78 mg/dl 02/28/25 04:09
VLDL Cholesterol, Calc 8 mg/dl (0-30) 02/28/25 04:09
HDL Cholesterol 43 mg/dl 02/28/25 04:09
02/27/25 02/28/25
17:12 08:15
Nlk-H-Deeqznzynof Pept 4890 6170
LAB Results
02/27/25 02/27/25 02/28/25
17:12 20:49 04:09
Troponin I 0.016 0.018 0.018
02/28/25 03/01/25
08:15 05:41
Troponin I 0.017 0.020
Physical Exam
Constitutional: No acute distress
EENT: Anicteric
Cardiovascular: Rhythm & rate is regular
Respiratory: Respiratory effort normal
GI: Distention present
Neuro/Psych: Alert, Oriented and AO x 3
Data Reviewed
-
Date of Service: March 01, 2025
Medical Decision Making: Reviewed Test Results
EKG: Tracing Personally Visualized and interpreted (sr)
Echo: Tracing Personally Visualized and interpreted
Labs: Labs Reviewed by me
--- NOTE | 2025-03-01 11:49 | CON.GS ---
Consultation
-
Date/Time Consultation Performed: 03/01/2025 11:45
Performing Provider: Ta
Reason for Consultation: ileus
Medical History
-
Chief Complaint: abdominal distention/pain
History of Present Illness:
64 y/o male admitted 02/27/25 secondary to hypertensive urgency on 02/28/[address] imaging obtained yesterday evening d/t abdominal distention.
patient reports long standing digestive issues. he always feels like his food just 'sits there' with chronic abdominal distention/bloating. intermittent nausea and feels like he needs to induce vomiting but generally does not vomit. also reports
intermitted constipation. symptoms are a bit worse than his baseline but currently without pain and he is requesting to eat.
large BM documented yesterday evening after CT imaging
Past Medical History
Past Medical History: Other (HTN, ERIN, obesity with BMI 39)
Past Surgical History: None
Social History
Tobacco: Non-Smoker
Alcohol: None
Living: With Family
Allergies / Home Medications
Allergy/AdvReac Type Severity Reaction Status Date / Time
Penicillins Allergy Swelling Verified 02/27/25 17:16
Review of Systems
-
History Source: Patient
All other systems: Negative unless noted
A 10 point review of systems was completed, and was negative except as per HPI.
Physical Exam
Vital Signs
Temp Pulse Resp BP Pulse Ox
97.5 F 79 25 124/97 97
03/01/25 07:57 03/01/25 08:00 03/01/25 08:00 03/01/25 08:00 03/01/25 08:00
02/28/25 03/01/25 03/02/25
06:59 06:59 06:59
Actual Weight 125.673 kg 120.8 kg
Body Mass Index (BMI) 39.4
Lab Results
03/01/25 04:18
03/01/25 04:18
WBC 6.2 10^3/uL (4.8-10.8) 03/01/25 04:18
Hgb 14.7 g/dL (13.0-18.0) 03/01/25 04:18
Hct 41.1 % (39.0-52.0) 03/01/25 04:18
Plt Count 212 10^3/uL (130-400) 03/01/25 04:18
Abs Immat Gran (auto) 0.0 10^3/uL (0-0.05) 02/27/25 14:08
Neutrophils % 53.9 % (42.2-75.2) 02/27/25 14:08
Physical Exam
General: Well Developed, Well Nourished, No Apparent Distress and Comfortable (resting in hospital bed)
HEENT: Normocephalic, Anicteric and Moist Mucous Membranes
Respiratory: Non Labored Respirations
Cardiac: Regular Rhythm
GI: Soft, Non Tender, Distended (distended and tympanic) and Other (no hernias, no masses, no R/R/G)
Skin: Warm
Neuro: AO x 3
Psych: Calm
Data Reviewed
-
CT Scan: Image Personally Visualized and interpreted
Labs: Labs Reviewed by me
Assessment / Plan
-
Assessment: 64 y/o male admitted with hypertensive urgency and HFrEF ; with probable colonic ileus in setting of acute medical illness but symptoms suggestive of chronic GI dysmotility (post prandial distention, nausea, intermitted constipation for
years)
CT imaging with generalized colonic distention throughout up to level of distal sigmoid. no readily apparent mass or inflammatory process on CT imaging
oral contrast opacifies SB and approaches the distal ileum.
no radiographic or clinical signs suggestive of bowel threat/compromise. overall history is more suggestive of dysmotility than mechanical process
Plan: follow up abdominal Xray imaging today to monitor for progression of ingested oral contrast
continue bowel rest but okay for sips clear/ice chips for comfort
dulcolax suppository x1
will get GGE imaging after oral contrast clears colon to further evaluate sigmoid
[2025-03-01] MEDS: DULCOLAX 10 MG RECTAL (13:40)
--- NOTE | 2025-03-01 14:17 | PTCARENOTE ---
received pt from IMU. Pt complains of 2/10 abdominal pain, describes the pain as sharp feeling. SR on tele monitor. Oriented to room and unit. Call beltre within reach.
[2025-03-01] MEDS: TYLENOL 650 MG PO (14:22)
--- NOTE | 2025-03-01 15:55 | PTCARENOTE ---
HR down to 38, appears to be junctional rhythm.
Dr Stark made aware. Will continue to monitor.
[2025-03-01] MEDS: LOVENOX 40 MG SC (17:43)
[2025-03-01] MEDS: REMOVE LIDOCAINE PATCH 1 PATCH REMOVE (21:12)
[2025-03-02] VITALS (9 sets, daily range): BP systolic 106–119; BP diastolic 78–91; PULSE 76; BMI 38.2
[2025-03-02 05:12] LABS: Hematocrit 44.8 % (39.0-52.0); Hemoglobin 16.3 g/dL (13.0-18.0); Mean Corp Hgb Conc. 36.4 g/dL (33.0-37.0); Mean Corpuscular Volume 76.2 fL (80.0-94.0); Platelet Count 216 10^3/uL (130-400); Red Cell Dist. Width 13.8 % (11.5-14.5)
--- NOTE | 2025-03-02 05:27 | PTCARENOTE ---
Pt NSR on monitor VSS Pt NPO per order. Pt denies SOB. Ambulating with x 1 assist and RW. Safety measures in place
[2025-03-02 05:36] LABS: ALT (SGPT) 35 U/L (0-50); AST (SGOT) 28 U/L (17-59); Albumin 4.0 g/dl (3.5-5.0); Alkaline Phosphatase 88 U/L (38-126); Blood Urea Nitrogen 17 mg/dl (9-20); Calcium 9.1 mg/dl (8.4-10.2); Carbon Dioxide 26 mmol/L (22-30); Chloride 105 mmol/L (98-107); Estimated Creatinine Clearance 96 ml/min; Glucose 91 mg/dl (70-99); Magnesium 1.8 mg/dl (1.6-2.3); Potassium 3.7 mmol/L (3.5-5.1); Sodium 138 mmol/L (135-145); Total Protein 6.8 g/dl (6.3-8.2); eGFR > 60.00
[2025-03-02] MEDS: LASIX 40 MG IV ×2 (07:58→15:47)
[2025-03-02] MEDS: LIDOCAINE 4% PATCH 1 PATCH TOPICAL (08:00)
--- NOTE | 2025-03-02 08:42 | W.PN.HOSP.TC ---
Today's Communication/Plan
-
clears
cont diuresis
await input from consultants--apprec help
Assessment / Plan
Assessment / Plan
pt is a 64 year old male
Hypertensive urgency-- much improved-- cont IV Lasix, on coreg and valsartan with plans to switch to Entresto (Entresto $1 copay with limit of 6 pills/day and Jardiance/Farxiga $3 for 30 pills per CM)--echocardiogram with EF 20-25%--pro-BNP 4890 now
down to 648--coreg and valsartan started--renal US neg for renal artery stenosis
'new?' onset HFrEF--with exacerbation presented as cough--cont diuresis--coreg and valsartan started--transfer to IVU--had cardiac cath at [facility] < 2 months ago--awaiting records-- priced meds for d/c when ready--weights down from 129.4kg on
admission to 117.2 kg today 03/02/25 (26.8 lbs off to date)
ERIN--supposed to be using CPAP--apprec respiratory--consider pulm consult
ileus--by x-ray and CT scan--no obstruction--OOB, ambulate--apprec surgery--clears
obesity--affects all aspects of care
DVT prophylaxis--subcu Lovenox
CODE STATUS--full code
02/28/25 spoke with pt brother Chepe (pt POA, bringing paperwork today) and [id number] Nery--all now in agreement to keep patient here until medically stable for d/c
pt with some type of developmental delay--family states that he cannot make his own decisions.....
03/02/25--have not received paperwork from brother nor records from [facility] at this stage--I asked Olivier today if he felt safe going home--he said '50/50'--he said 'they' take his money--his [id number] 'hollers and screams a lot'--I asked him if
they (brother and sister in law) have his best interest at heart, he said 'not really'--he said he would like to live on his own and when I asked if he could do that he said, 'I think I can but they don't think so'--I asked him how he gets money and
he said, 'I worked at [employer] for 46 years' asked him if he is retired 'no' he said, 'my brother gives me money but sometimes they take it'--I asked him why he didn't go to [facility] and he said his family brought him here because he was
coughing.....I think protective services should be involved--will defer to CM
Anticipated Discharge: 24 - 48 hours
Subjective/Interval History
-
Date of Service: March 02, 2025
pt states he is still coughing but not as much
Objective Data
-
Labs:
Laboratory Results
03/02/25
04:44
WBC 5.1
Hgb 16.3
Hct 44.8
Plt Count 216
Sodium 138
Potassium 3.7
Chloride 105
Carbon Dioxide 26
BUN 17
Creatinine 1.0
Glucose 91
Calcium 9.1
Total Bilirubin 3.1 H
AST 28
ALT 35
Alkaline Phosphatase 88
Vital Signs:
max temp for 24 hours
02/27/25
13:48 03/01/25
23:08 03/02/25
04:33
Temp 98.9 F
Actual Weight 129.4 kg 117.2 kg
Vital Signs
Temp Pulse Resp BP Pulse Ox
97.6 F 81 20 112/84 97
03/02/25 07:21 03/02/25 08:00 03/02/25 07:21 03/02/25 07:24 03/02/25 07:21
I&O
03/01/25 03/02/25 03/03/25
06:59 06:59 06:59
Intake Total 350 / 350
Output Total 1700 / 1700 2625 / 2625
Balance -1700 / -1700 -2275 / -2275
Review of Systems
-
All other systems: Reviewed and negative
Respiratory: Reports Cough
Physical Exam
-
General: Well Developed, Well Nourished and No Apparent Distress
HEENT: Normocephalic and Atraumatic; Negative Oxygen
Respiratory: Clear to Auscultation; Negative Wheezes or Rhonchi
Cardiac: Regular Rhythm and S1/S2; Negative Murmur
GI: Soft, Nontender and Distended; Negative Normal Bowel Sounds (hypoactive)
Musculoskeletal: No Clubbing, No Cyanosis and No Edema
Neuro: Awake
[2025-03-02] MEDS: MIRALAX 17 GRAMS PO (09:20)
[2025-03-02] MEDS: COLACE 100 MG PO ×2 (09:20→20:33)
[2025-03-02] MEDS: DIOVAN 40 MG PO ×2 (09:20→20:33)
[2025-03-02] MEDS: COREG PO (09:30)
--- NOTE | 2025-03-02 10:46 | W.PN.GS2 ---
Addendum entered and electronically signed by Vahe Chappell MD 03/02/25 11:08:
Patient seen and examined. Sitting up in chair at bedside.
States that he is not doing well but does not offer any specific complaints or questions.
Denies abdominal pain
Denies abdominal bloating or distention
No nausea or vomiting; passing flatus and has had a few more bowel movements over the last 24 hours
AFVSS
NAD AAO x 3
ABD remains distended but softer than yesterday. No tenderness.
Abdominal x-ray yesterday confirmed progression of oral contrast from small bowel into the colon and into level of descending colon
Assessment/plan: Clinically improving Debra's/colonic ileus
Full liquid diet
Gastrografin enema tomorrow to further evaluate sigmoid colon
Original Note:
Today's Communication / Plan
-
GGE tomorrow
FLD
Assessment / Plan
-
64 y/o male admitted with hypertensive urgency and HFrEF ; with probable colonic ileus in setting of acute medical illness but symptoms suggestive of chronic GI dysmotility (post prandial distention, nausea, intermitted constipation for years)
CT imaging with generalized colonic distention throughout up to level of distal sigmoid. no readily apparent mass or inflammatory process on CT imaging oral contrast opacifies SB and approaches the distal ileum.
Passing flatus/stools, distention improved
Tolerating clears thus far
VSS, afebrile
Plan:
Full liquids
Gastrografin enema in am to further evaluate colon
Medical management as per primary team, d/w Dr. Gonzalez
Subjective Data
-
Date of Service: March 02, 2025
Pt seen and examined at bedside with Dr. Chappell. OOB to chair. Denies n/v. Passing flatus. Passing some stools. Denies pain.
Objective Data
-
Intake and Output
03/01/25 03/02/25 03/03/25
06:59 06:59 06:59
Intake Total 350 / 350
Output Total 1700 / 1700 2625 / 2625 750 / 750
Balance -1700 / -1700 -2275 / -2275 -750 / -750
Intake:
Oral fluids 350 / 350
Output:
Urine, Voided 1700 / 1700 2625 / 2625 750 / 750
Other:
Number of approximated MODERATE 2
amounts of urine
Vital Signs
Temp Pulse Resp BP Pulse Ox
97.6 F 79 20 106/86 97
03/02/25 07:21 03/02/25 10:00 03/02/25 07:21 03/02/25 09:20 03/02/25 07:30
Lab Results
03/02/25 04:44
03/02/25 04:44
Calcium 9.1 mg/dl (8.4-10.2) 03/02/25 04:44
Magnesium 1.8 mg/dl (1.6-2.3) 03/02/25 04:44
Total Bilirubin 3.1 mg/dl (0.2-1.3) H 03/02/25 04:44
AST 28 U/L (17-59) 03/02/25 04:44
ALT 35 U/L (0-50) 03/02/25 04:44
Alkaline Phosphatase 88 U/L (38-126) 03/02/25 04:44
Total Protein 6.8 g/dl (6.3-8.2) 03/02/25 04:44
Albumin 4.0 g/dl (3.5-5.0) 03/02/25 04:44
Physical Exam
-
NAD
ABD softly distended/protuberant but not tense, NT
--- NOTE | 2025-03-02 13:39 | W.PN.CD ---
Today's Communication / Plan
-
IV diuresis
ernst try and contact [facility] about records
Impression / Plan
-
I/P: 64M with hypertension, heart failure (type unknown), and ERIN who presented to the ER with a chief complaint of shortness of breath.
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
Dilated cardiomyopathy (EF 20-25%) - severe, requiring hospitalization
- Elevated proBNP with complains of orthopnea, continue diuresis with furosemide 40 mg IV twice daily this requires intensive monitoring
- Severely dilated LV and dilated RV
- Reportedly had a cardiac catheterization without acute findings at [facility], this has been requested
- GDMT as tolerated:
-ELENITA/ARB/ARNI: Start valsartan 40 mg twice daily, case management to moralez sacubitril�valsartan
-SGLT2 inhibitor: Case management to moralez
-Aldosterone agonist: Can consider
-Beta milla: Start carvedilol 6.25 mg twice daily
-Isosorbide/Hydralazine:�Defer for now
-ICD: Reassess LVEF in 3 months for determination
- Trend daily weight, I/O, and BMP with diuresis and changes in medical therapy
Hypertensive urgency
- Uncontrolled hypertension at home
- Stop hydralazine 5 mg every 4 hours
- BP management as above
Dilated aortic root, 4.2 cm
ERIN, nonadherent with CPAP
Obesity, BMI 40, affects all aspects of care he would benefit from weight loss
Subjective: breathing improved
Physical Exam
Vital Signs/Labs
Vital Signs
Temp Pulse Resp BP Pulse Ox
97.8 F 78 20 118/78 97
03/02/25 11:46 03/02/25 11:44 03/02/25 11:46 03/02/25 11:44 03/02/25 11:46
03/01/25 03/02/25 03/03/25
06:59 06:59 06:59
Actual Weight 266 lb 5.094 oz 258 lb 6.108 oz
03/02/25 04:44
03/02/25 04:44
Magnesium 1.8 mg/dl (1.6-2.3) 03/02/25 04:44
Triglycerides 43 mg/dl (10-149) 02/28/25 04:09
LDL Cholesterol, Calc 78 mg/dl 02/28/25 04:09
VLDL Cholesterol, Calc 8 mg/dl (0-30) 02/28/25 04:09
HDL Cholesterol 43 mg/dl 02/28/25 04:09
02/27/25 02/28/25 03/02/25
17:12 08:15 04:44
Bxn-E-Yshjvxxnfis Pept 4890 [id number]
LAB Results
02/27/25 02/27/25 02/28/25
17:12 20:49 04:09
Troponin I 0.016 0.018 0.018
02/28/25 03/01/25
08:15 05:41
Troponin I 0.017 0.020
Physical Exam
Constitutional: No acute distress and Comfortable
EENT: Anicteric
Cardiovascular: Rhythm & rate is regular
Respiratory: Respiratory effort normal and Lungs clear to auscul.
GI: Soft
Neuro/Psych: AO x 3
Data Reviewed
-
Date of Service: March 02, 2025
EKG: Tracing Personally Visualized and interpreted (sr)
Echo: Tracing Personally Visualized and interpreted
Labs: Labs Reviewed by me
[2025-03-02] MEDS: LOVENOX 40 MG SC (16:56)
[2025-03-02] MEDS: COREG 6.25 MG PO (20:33)
[2025-03-02] MEDS: REMOVE LIDOCAINE PATCH REMOVE (20:35)
--- NOTE | 2025-03-02 21:40 | PTCARENOTE ---
Patient received at change of shift out of bed to the chair. Reports no history of Radha Auris. The patient's only complaint at this time is the feeling of abdominal fullness. The patient's abdomen is round, obese, firm, and does appear distended.
The patient reports passing no flatus this evening but per the previous shift he was passing flatus earlier in the day. Denies nausea/vomiting. Sinus rhythm with first degree AVB on telemetry. Oxygen saturation 97-98% on room air. Plan of care
discussed. Call beltre within reach. Bed alarm armed. Care ongoing.
[2025-03-03] VITALS (10 sets, daily range): BP systolic 97–138; BP diastolic 70–96; PULSE 70–76; O2SAT 98; BMI 38.7
[2025-03-03 04:35] LABS: Hematocrit 42.5 % (39.0-52.0); Hemoglobin 15.5 g/dL (13.0-18.0); Mean Corp Hgb Conc. 36.5 g/dL (33.0-37.0); Mean Corpuscular Volume 76.6 fL (80.0-94.0); Platelet Count 205 10^3/uL (130-400); Red Cell Dist. Width 13.6 % (11.5-14.5)
[2025-03-03 05:00] LABS: ALT (SGPT) 32 U/L (0-50); AST (SGOT) 26 U/L (17-59); Albumin 3.8 g/dl (3.5-5.0); Alkaline Phosphatase 78 U/L (38-126); Blood Urea Nitrogen 22 mg/dl (9-20); Calcium 8.9 mg/dl (8.4-10.2); Carbon Dioxide 29 mmol/L (22-30); Chloride 99 mmol/L (98-107); Estimated Creatinine Clearance 80 ml/min; Glucose 88 mg/dl (70-99); Magnesium 1.8 mg/dl (1.6-2.3); Potassium 4.1 mmol/L (3.5-5.1); Sodium 136 mmol/L (135-145); Total Protein 6.4 g/dl (6.3-8.2); eGFR > 60.00
[2025-03-03] MEDS: COREG 6.25 MG PO (07:59)
[2025-03-03] MEDS: LIDOCAINE 4% PATCH 1 PATCH TOPICAL (07:59)
[2025-03-03] MEDS: DIOVAN 40 MG PO (07:59)
[2025-03-03] MEDS: COLACE 100 MG PO ×2 (07:59→20:26)
[2025-03-03] MEDS: LASIX 40 MG IV (07:59)
[2025-03-03] MEDS: MIRALAX 17 GRAMS PO (08:00)
--- NOTE | 2025-03-03 08:42 | W.PN.CD ---
Addendum entered and electronically signed by Se Stark MD 03/03/25 15:42:
will hold off on LHC/RHC given obstruction
Original Note:
Today's Communication / Plan
-
Hold afternoon lasix
start farxiga 10 mg
start entresto tomorrow
NPO after midnight for RHC/LHC tomorrow
Impression / Plan
-
I/P: 64M with hypertension, heart failure (type unknown), and ERIN who presented to the ER with a chief complaint of shortness of breath.
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
Dilated cardiomyopathy (EF 20-25%) - severe, requiring hospitalization
- Elevated proBNP with complains of orthopnea, continue diuresis with furosemide 40 mg IV twice daily this requires intensive monitoring
- Severely dilated LV and dilated RV
- Reportedly had a cardiac catheterization without acute findings at [facility], this has been requested
- GDMT as tolerated:
-ELENITA/ARB/ARNI: Start s tomorrow sacubitril�valsartan it is $8
-SGLT2 inhibitor: Farxiga 10 mg $3 ibarra art
-Aldosterone agonist: Can consider
-Beta milla: Start carvedilol 6.25 mg twice daily
-Isosorbide/Hydralazine:�Defer for now
-ICD: Reassess LVEF in 3 months for determination
- Trend daily weight, I/O, and BMP with diuresis and changes in medical therapy
Hypertensive urgency
- Uncontrolled hypertension at home
- Stop hydralazine 5 mg every 4 hours
- BP management as above
Dilated aortic root, 4.2 cm
ERIN, nonadherent with CPAP
Obesity, BMI 40, affects all aspects of care he would benefit from weight loss
Subjective: breathing improved belly still distended
Physical Exam
Vital Signs/Labs
Vital Signs
Temp Pulse Resp BP Pulse Ox
97.6 F 56 20 126/85 98
03/03/25 07:52 03/03/25 08:00 03/03/25 07:52 03/03/25 07:51 03/03/25 07:52
03/02/25 03/03/25 03/04/25
06:59 06:59 06:59
Actual Weight 258 lb 6.108 oz 261 lb 11.019 oz
03/03/25 04:00
03/03/25 04:00
Magnesium 1.8 mg/dl (1.6-2.3) 03/03/25 04:00
Triglycerides 43 mg/dl (10-149) 02/28/25 04:09
LDL Cholesterol, Calc 78 mg/dl 02/28/25 04:09
VLDL Cholesterol, Calc 8 mg/dl (0-30) 02/28/25 04:09
HDL Cholesterol 43 mg/dl 02/28/25 04:09
02/27/25 02/28/25 03/02/25
17:12 08:15 04:44
Piz-U-Wdgdylrrldz Pept 4890 2554 888
LAB Results
02/28/25 03/01/25
08:15 05:41
Troponin I 0.017 0.020
Physical Exam
Constitutional: No acute distress and Comfortable
EENT: Anicteric
Cardiovascular: Rhythm & rate is regular and Pedal edema is absent
Respiratory: Respiratory effort normal and Crackles Present (trace)
GI: Distention present
Neuro/Psych: AO x 3
Data Reviewed
-
Date of Service: March 03, 2025
EKG: Tracing Personally Visualized and interpreted (sr)
Echo: Report Reviewed by me
Labs: Labs Reviewed by me
--- NOTE | 2025-03-03 09:26 | W.PN.HOSP.TC ---
Today's Communication/Plan
-
Continue IV Lasix
Follow-up barium enema
N.p.o. after midnight
Assessment / Plan
Assessment / Plan
Gen-AAOx3, NAD, obese
HEENT-NC, AT, anicteric, clear oral mm
Neck-supple
CV-reg, no M, +S1/S2
Lungs-clear B/L
Abd-distended but nontender
Ext-no edema
Musculoskeletal-no cyanosis, clubbing
Skin-warm and dry
Neuro-grossly non-focal
Psych-calm, cooperative
Hypertensive urgency-- much improved-- cont IV Lasix, on coreg and valsartan with plans to switch to Entresto (Entresto $1 copay with limit of 6 pills/day and Jardiance/Farxiga $3 for 30 pills per CM)--echocardiogram with EF 20-25%--pro-BNP 4890 now
down to 648--coreg and valsartan started--renal US neg for renal artery stenosis
Acute heart failure reduced EF exacerbation--with exacerbation presented as cough--cont diuresis--coreg and valsartan started--transfer to IVU--had cardiac cath at [facility] < 2 months ago--awaiting records-- priced meds for d/c when ready.
Weight is down 11 kg since admission. BUN slowly rising, 22.
Cardiology plans on cardiac catheterization 03/04.
ERIN--supposed to be using CPAP.
Colonic ileus--by x-ray and CT scan--no obstruction. Tolerating full liquid diet.
General surgery following.
For barium enema today.
Presumed developmental delay
Obesity due to excess calories
DVT prophylaxis--subcu Lovenox
Full code
Anticipated Discharge: > 48 hours
Subjective/Interval History
-
Date of Service: March 03, 2025
Patient seen and examined. No complaints.
Objective Data
-
Labs:
Laboratory Results
03/03/25
04:00
WBC 5.3
Hgb 15.5
Hct 42.5
Plt Count 205
Sodium 136
Potassium 4.1
Chloride 99
Carbon Dioxide 29
BUN 22 H
Creatinine 1.2
Glucose 88
Calcium 8.9
Total Bilirubin 2.2 H
AST 26
ALT 32
Alkaline Phosphatase 78
Vital Signs:
Vital Signs
Temp Pulse Resp BP Pulse Ox
97.6 F 56 20 126/85 98
03/03/25 07:52 03/03/25 08:00 03/03/25 07:52 03/03/25 07:51 03/03/25 07:52
I&O
03/02/25 03/03/25 03/04/25
06:59 06:59 06:59
Intake Total 350 / 350 450 / 450 120 / 120
Output Total 2625 / 2625 1450 / 1450 550 / 550
Balance -2275 / -2275 -1000 / -1000 -430 / -430
Review of Systems
-
History Source: Patient
All other systems: Reviewed and negative
--- NOTE | 2025-03-03 09:50 | PTCARENOTE ---
Assumed care at 0700.Patient is AOx3, pleasant cooperative. SR with bigeminy. Generalized anasarca. Abdomen round large, softly distended, non-tender, passing flatus, last BM yesterday. Tolerating full liquids. Voiding in the bathroom using rolling
walker with standby assistance, urine dark yellow. Bed and chair alarms in place for safety, call beltre in reach
--- NOTE | 2025-03-03 11:00 | PTOTSP ---
Dysphagia Evaluation
Pt presents with signs concerning for possible esophageal dysphagia and possible episodes of bottom-up aspiration. Patient at risk for dysphagia given SOB and chronic coughing as well as history of developmental delay. Pt reported difficulty
swallowing meat/breads with stasis and regurgitation prior to admission.
Recommendations:
1. Full liquid diet per general surgery
2. Medications as best tolerated.
3. Strategies: Single sips/bites, slowed rate, alternating liquid washes, refux precautions.
4. Recommend GI consult given PMH and pt reports.
5. F/U w/ ST to trial Regulars tolerance when cleared to advance to assess mastication given edentulous status
6. Will f/u to determine if instrumental swallow testing warranted
--- NOTE | 2025-03-03 11:31 | W.PN.GS2 ---
Addendum entered and electronically signed by Narinder Spencer MD 03/03/25 16:49:
Gastrografin enema demonstrates occlusion at the level of the rectosigmoid junction. Reviewing his CAT scan I am not concerned for volvulus but clearly there is a pinch here that is preventing antegrade/retrograde passage consistent with Montezuma
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
I did consult GI for possible endoscopic rectal tube placement similar to ones that are placed for sigmoid volvulus. It is my hope after placement the patient can proceed with what ever catheterization procedures yeah he may need.
For now would back down to clear liquids. N.p.o. at midnight.
General surgery will follow peripherally.
Please call with any questions or concerns.
Original Note:
Today's Communication / Plan
-
Gastrografin enema ordered.
Assessment / Plan
-
64 y/o male admitted with hypertensive urgency and HFrEF ; with probable colonic ileus in setting of acute medical illness but symptoms suggestive of chronic GI dysmotility (post prandial distention, nausea, intermitted constipation for years)
CT imaging with generalized colonic distention throughout up to level of distal sigmoid. no readily apparent mass or inflammatory process on CT imaging oral contrast opacifies SB and approaches the distal ileum.
Passing flatus/stools, distention improved
Tolerating clears thus far
VSS, afebrile
Plan:
Full liquids
Gastrografin enema in am to further evaluate colon
Medical management as per primary team, d/w Dr. Gonzalez
Time Spent
Total Time Spent with Patient (in minutes): 15
Subjective Data
-
Date of Service: March 03, 2025
Interval Events:
No acute events overnight. Slept well. Pain Controlled. Denies Nausea/Vomiting, +bowel function. Tolerating diet.
Objective Data
-
Intake and Output
03/02/25 03/03/25 03/04/25
06:59 06:59 06:59
Intake Total 350 / 350 450 / 450 120 / 120
Output Total 2625 / 2625 1450 / 1450 550 / 550
Balance -2275 / -2275 -1000 / -1000 -430 / -430
Intake:
Oral fluids 350 / 350 450 / 450 120 / 120
Output:
Urine, Voided 2625 / 2625 1450 / 1450 550 / 550
Other:
Number of approximated MODERATE 2
amounts of urine
How many times incontinent 1
SATURATED amount urine
Vital Signs
Temp Pulse Resp BP Pulse Ox
97.6 F 56 20 126/85 98
03/03/25 07:52 03/03/25 08:00 03/03/25 07:52 03/03/25 07:51 03/03/25 07:52
Lab Results
03/03/25 04:00
03/03/25 04:00
Calcium 8.9 mg/dl (8.4-10.2) 03/03/25 04:00
Magnesium 1.8 mg/dl (1.6-2.3) 03/03/25 04:00
Total Bilirubin 2.2 mg/dl (0.2-1.3) H 03/03/25 04:00
AST 26 U/L (17-59) 03/03/25 04:00
ALT 32 U/L (0-50) 03/03/25 04:00
Alkaline Phosphatase 78 U/L (38-126) 03/03/25 04:00
Total Protein 6.4 g/dl (6.3-8.2) 03/03/25 04:00
Albumin 3.8 g/dl (3.5-5.0) 03/03/25 04:00
Physical Exam
-
GENERAL/NEURO: Awake, Alert, no distress
CHEST: Unlabored breathing on RA
ABDOMEN: Soft, Non-Tender, obese, markedly distended
--- NOTE | 2025-03-03 12:45 | PTCARENOTE ---
Assisted to the bathroom, fecal incontinence on gown and pad, soft liquid light brown stool in the bathroom. Care provided. Denies pain, tolerating full liquids.
--- NOTE | 2025-03-03 14:44 | CM ---
Chart reviewed. Patient is independent of ADLS, lives with his ENOC in a [address], full flight of stairs to enter, has a CPAP machine at home. I spoke to the patient about his living situation. He told me his brother, Chepe, is his POA and has
control over his money. He told me he use to live with his brother Chepe, but could no longer live there so he has been living with his brother's for the last 4 years. He feels like she is controlling but does not want to get
protective services involved. He doesn't want to start any trouble between him and his ENOC or his niece and nephew. He wants to return to his [facility] house when ready for discharge. I spoke to his brother, Chepe, and he is working on retrieving the
POA paperwork. He is having trouble finding it. Patient is interested in waiver services. I placed a call to [facility]. I also notified Dr Hickman. Patient is interested in a walker. I asked Dr Hickman for a script. Plan
is for the patient to return home when medically stable for discharge. CM to follow
--- NOTE | 2025-03-03 16:10 | CON.GI ---
Addendum entered and electronically signed by Deidra Crockett MD 03/03/25 19:02:
I saw and examined the patient.
The BIOMEDICAL SERVICE ENGINEER or PA's note was reviewed and I agree with the note.
Comment: 64-year-old male with history of hypertension, congestive heart failure, sickle cell trait presenting to the emergency room with complaints of cough and shortness of breath, hypertensive urgency. He had an echocardiogram- noted to have low
ejection fraction-20 to 25% and plan was to do right and left heart cath. He did have obstruction series that showed gaseous distention of small bowel and colon, subsequent surgical evaluation and Gastrografin study showed an area of narrowing at
twisting of the colon at the rectosigmoid junction and contrast could not pass further into the sigmoid colon prompting a GI consult. Patient also has chronic difficulties with swallowing solids and pills, speech evaluation did show bottom of
aspiration and possible esophageal dysphagia.
Patient reports having chronic difficulties with swallowing for more than 5 years with regurgitation, choking and coughing and trouble swallowing. Reports having upper endoscopy at [facility] in 2021, not sure of the findings. Also reports having
colonoscopy around the same time with poor prep. He does have chronic constipation but does not take laxatives on a regular basis. Currently denies any abdominal pain, nausea or vomiting. No history of GI bleed, blood in the stool or black stool.
No unintentional weight loss or NSAID use. Labs show microcytosis without any evidence of anemia, also noted to have mildly elevated total bilirubin with other LFTs being normal. CT scan shows normal-looking liver.
- Distention of small bowel and colon with an area of occlusion at the level of the rectosigmoid junction, rule out malignancy versus other
Patient reports having colonoscopy with poor prep in 2021, we do not have the records.
Will plan for flexible sigmoidoscopy and rectal tube placement tomorrow. Tapwater enema prior to the procedure.
Risk of aspiration hide given he does have regurgitation of esophageal contents with cough. Need to elevate the head up during the procedure.
I did reach out to cardiology regarding if patient is optimized from their standpoint for the flexible sigmoidoscopy, no concerns from the event and okay to proceed.
N.p.o. past midnight
- Chronic dysphagia
Once active issues are addressed, prior to discharge, can do upper GI study and outpatient workup after
Until then, follow speech recommendations
- Chronic constipation, continue MiraLAX and Colace
- Elevated total bilirubin, will check direct bilirubin, other LFTs in normal range
Will follow
Original Note:
Consultation
-
Date/Time Consultation Requested: 03/03/25 1400
Date/Time Consultation Performed: 03/03/25 1600
Requesting Provider: Dr. Hickman
Performing Provider: Dr. Crockett/LIU Parra
Reason for Consultation: dysphagia, narrowing of rectosigmoid colon on gastrograffin enema
Medical History
Chief Complaint / HPI
Chief Complaint: cough/SOB
History of Present Illness:
64-year-old male with past medical history of hypertension, sickle cell trait, heart failure, obstructive sleep apnea, intermittent solid food dysphagia for 2 months, chronic constipation for 2 years and left hip fracture status post repair
presents to the emergency room on 02/27/2025 for cough, shortness of breath and inability to lie flat. The patient had an echo performed that showed an EF of 20 to 25%, significant hypertension in the 170s/120s, now treated and currently in the
120's/ 80s. The patient had a chest x-ray with obstruction series that showed diffuse gaseous distention of the colon and small bowel with prominent loop of bowel projecting over the right hemiabdomen showing severe ileus or distal bowel
obstruction. Volvulus was possible. CT of the abdomen and pelvis with oral contrast showed diffuse gaseous distended of the small bowel and colon most pronounced in the sigmoid colon with distal tapering without definite obstructing mass or
volvulus. Repeat x-ray on 03/01 showed interval improvement in gaseous distention of the sigmoid colon. Suggesting colonic ileus. Barium enema today showed abrupt narrowing and 'twisting' of the colon at the rectosigmoid junction without any
contrast to be passed further into the sigmoid colon limiting evaluation. We are asked to evaluate for this as well as the patient's complaints of intermittent solid food dysphagia ongoing for the past 2 months. The patient states that he has a
history of chronic constipation for the past 2 years. He can sometimes go a week without a bowel movement. Sometimes he utilizes laxatives however he states he does not have any at home. He does state that anytime he eats or drinks something he
feels as if he 'blows up'. Since 02/28/2025 he has had soft to liquid/loose mucoid bowel movements. The patient states that today he had 2 'watery bowel movements'and did pass gas with these 2 episodes. He has been on a solid diet until he became
distended on 02/28/2025. He was then n.p.o. and then started on a full liquid diet on 03/02/2024. He does state he has intermittent episodes of solid food dysphagia for the past 2 months with the inability to pass solids requiring regurgitation or
trying to drink liquids to get the food down. He denies any fevers, chills, nausea, vomiting, melena, hematochezia, odynophagia, early satiety or unintended weight loss. The patient will have intermittent episodes of chest pain and shortness of
breath.Currently at the present time he denies any chest pain or shortness of breath. He does have a raspy voice. He does not smoke. He does not drink any alcohol. He would take ibuprofen sparingly once every other week. He believes he had an
upper endoscopy in 2021. This was done in the [facility]. He also believes that he had a colonoscopy performed approximately 5 years ago however he was not 'cleaned out'. He does not recall what the actual findings were. He does have a family
history of cancer in both his mother and father. However he does not know the origin of the cancer.
Past Medical History
Past Medical History: Other (Hypertension, sickle cell trait, heart failure, obstructive sleep apnea)
Past Surgical History: Orthopedic (Left hip replacement)
Social History
Tobacco: Non-Smoker
Alcohol: None
Drug: None
Personal: Single
Living: With Family
Family History
Family History: Other (Family history of cancer, unsure types of cancer)
Allergies / Home Medications
Allergy/AdvReac Type Severity Reaction Status Date / Time
Penicillins Allergy Swelling Verified 02/27/25 17:16
tomato Allergy Hives Verified 03/03/25 14:23
Review of Systems
-
All other systems: A 12 pt ROS was Negative except as stated above in HPI
Vital Signs
Temp Pulse Resp BP Pulse Ox
97.6 F 56 20 126/85 98
03/03/25 07:52 03/03/25 08:00 03/03/25 07:52 03/03/25 07:51 03/03/25 07:52
Physical Exam
Exam
General: No Apparent Distress
HEENT: Anicteric
Cardiac: Regular Rhythm
GI: Soft, Non Tender, Normal Bowel Sounds and Distended
Skin: Warm and Dry
Neuro: AO x 3
Psych: Calm
Results
WBC 5.3 10^3/uL (4.8-10.8) 03/03/25 04:00
Hgb 15.5 g/dL (13.0-18.0) 03/03/25 04:00
Hct 42.5 % (39.0-52.0) 03/03/25 04:00
MCV 76.6 fL (80.0-94.0) L 03/03/25 04:00
Plt Count 205 10^3/uL (130-400) 03/03/25 04:00
Absolute Neuts (auto) 2.9 10^3/uL (1.4-6.5) 02/27/25 14:08
Sodium 136 mmol/L (135-145) 03/03/25 04:00
Potassium 4.1 mmol/L (3.5-5.1) 03/03/25 04:00
Chloride 99 mmol/L (98-107) 03/03/25 04:00
Carbon Dioxide 29 mmol/L (22-30) 03/03/25 04:00
BUN 22 mg/dl (9-20) H 03/03/25 04:00
Creatinine 1.2 mg/dL (0.7-1.3) 03/03/25 04:00
Calcium 8.9 mg/dl (8.4-10.2) 03/03/25 04:00
Total Bilirubin 2.2 mg/dl (0.2-1.3) H 03/03/25 04:00
AST 26 U/L (17-59) 03/03/25 04:00
ALT 32 U/L (0-50) 03/03/25 04:00
Alkaline Phosphatase 78 U/L (38-126) 03/03/25 04:00
Hepatitis C Antibody Negative (Negative) 02/28/25 04:09
Diagnostic Image Results:
Chest x-ray/Abd XR:
IMPRESSION:
There is diffuse gaseous distention of the colon and small bowel with a prominent loop of bowel projecting over the right lower hemiabdomen. Findings may represent severe ileus or distal bowel obstruction. A volvulus is possible. Consider CT for
further evaluation.
Cardiomegaly, similar to prior.
Abd CT 02/28/25:
There is diffuse gaseous distention of the small bowel and colon most pronounced in the sigmoid colon. There is distal tapering without definite obstructing mass or volvulus. Findings are favored to represent an ileus. A follow-up colonoscopy should
be considered to exclude a mass.
Cardiomegaly with dilation of the left ventricle
Abd XR 03/01/25:
IMPRESSION: Interval improvement in gaseous distention of the sigmoid colon. There remains gaseous distention of the colon, suggesting persistent colonic ileus.
Fracture through the left anterior and inferior aspect of the L1 vertebral body, as seen on recent CT examination.
Barium Enema:
IMPRESSION:
Abrupt narrowing and 'twisting' of the colon at the rectosigmoid junction without contrast able to be passed further into the sigmoid colon, evaluation limited.
Prior GI Procedures:
EGD: Per patient he thinks that this was performed in 2021 in the [facility]. Records unavailable to us
Colonoscopy: Per patient he thinks that this was performed approx 5 years ago in the [facility]. Records unavailable to us
Assessment / Plan
-
64-year-old male with past medical history of hypertension, sickle cell trait, heart failure, obstructive sleep apnea, intermittent solid food dysphagia for 2 months, chronic constipation for 2 years and left hip fracture status post repair
presents to the emergency room on 02/27/2025 for cough, shortness of breath and inability to lie flat. The patient had an echo performed that showed an EF of 20 to 25%, significant hypertension in the 170s/120s, now treated and currently in the
120's/ 80s. Continues on IV Lasix, Coreg, valsartan with eventual plans for right/left heart cath, currently on hold given GI issues. The patient had a chest x-ray with obstruction series that showed diffuse gaseous distention of the colon and small
bowel with prominent loop of bowel projecting over the right hemiabdomen showing severe ileus or distal bowel obstruction. Volvulus was possible. CT of the abdomen and pelvis with oral contrast showed diffuse gaseous distended of the small bowel
and colon most pronounced in the sigmoid colon with distal tapering without definite obstructing mass or volvulus. Repeat x-ray on 03/01 showed interval improvement in gaseous distention of the sigmoid colon. Suggesting colonic ileus. Barium enema
today showed abrupt narrowing and 'twisting' of the colon at the rectosigmoid junction without any contrast to be passed further into the sigmoid colon limiting evaluation. We are asked to evaluate for this as well as the patient's complaints of
intermittent solid food dysphagia ongoing for the past 2 months. Patient's dysphagia is to solid food only. Intermittent for the past 2 months. Has had to require some intermittent force regurgitation as well as having to drink liquids to get the
food down. WBC 5.3, hemoglobin 15.5, hematocrit 42.5, platelets 205, sodium 136, potassium 4.1, chloride 99, CO2 29, BUN 22, creatinine 1.2, glucose 88, total bilirubin 2.2, AST 26, ALT 32, alk phos 78. Did discuss with cardiology who gave the okay
with procedures at the present time.
Impression:
Abrupt narrowing and 'twisting' of colon at rectosigmoid junction on Barium enema/CT with gaseous distention/ distal tapering sigmoid colon
--> passing flatus and watery stool x 2 today
--> had full liquids today
Chronic constipation x 2 years
Solid food dysphagia-> intermittent x 2 months
HFrEF 20-25%
Hypertensive urgency
ERIN
Sickle cell trait
Plan:
-NPO after midnight
-Tap water enema in am
-Flex Sig tomorrow with rectal tube placement
-Will need EGD eventually to eval dysphagia. Will need to perform at different time do to increased risk of aspiration.
-Surgery and Cardiology following.
-Further recommendations to be forthcoming.
-
-
Thank you for consultation and allowing me to participate in the patient's care. Please call the bonbon cream warmer GI physician during the after hours with any questions or concerns.
[2025-03-03] MEDS: LOVENOX 40 MG SC (17:46)
[2025-03-03] MEDS: DESENEX/MITRAZOL/ZEASORB 1 APPLIC TOPICAL (20:26)
[2025-03-03] MEDS: COREG PO (20:28)
[2025-03-03] MEDS: DIOVAN PO (20:28)
[2025-03-03] MEDS: REMOVE LIDOCAINE PATCH 1 PATCH REMOVE (20:28)
--- NOTE | 2025-03-03 20:58 | PTCARENOTE ---
Assumed care of patient at aprox 1930. PM Medications given. BP meds held due to BP of 98/70. SR on monitor with first degree. Pt oriented but forgetful at times. Bed alarm on for safety. Denies any pain. Assisted pt to bathroom and patient had
small soft BM and voided 450ml of king urine in hat. Instructed patient to continue to ring for assistance OOB.
[2025-03-04] VITALS (19 sets, daily range): BP systolic 16–156; BP diastolic 61–109; PULSE 97; BMI 38.2
[2025-03-04 05:14] LABS: ALT (SGPT) 30 U/L (0-50); AST (SGOT) 27 U/L (17-59); Albumin 3.7 g/dl (3.5-5.0); Alkaline Phosphatase 83 U/L (38-126); Total Protein 6.3 g/dl (6.3-8.2)
--- NOTE | 2025-03-04 06:20 | PTCARENOTE ---
Assumed care on pt at 2300, aaox3, forgetful, bed alarm in place and functioning. SR/SB w/ PVC's on tele monitor, HR 40's -70's. Denies c/o cp, dizziness, SOB. Abd distended, soft and nontender, x1 small brown mucus stool this morning, passing
flatus. voiding without issues, king color urine. NPO since midnight for priscilla procedures today. Call beltre within reach.
--- NOTE | 2025-03-04 08:14 | W.PN.HOSP.TC ---
Today's Communication/Plan
-
Flex sig with rectal tube
Assessment / Plan
Assessment / Plan
Gen-awake, NAD, obese
HEENT-NC, AT, anicteric, clear oral mm
Neck-supple
CV-reg, no M, +S1/S2
Lungs-clear B/L
Abd-distended but nontender
Ext-no edema
Musculoskeletal-no cyanosis, clubbing
Skin-warm and dry
Neuro-grossly non-focal
Psych-calm, cooperative
Hypertensive urgency/essential hypertension -blood pressure improved overall. On coreg and valsartan with plans to switch to Entresto (Entresto $1 copay with limit of 6 pills/day and Jardiance/Farxiga $3 for 30 pills per CM)--echocardiogram with EF
20-25%--pro-BNP 4890 now down to 648--coreg and valsartan started--renal US neg for renal artery stenosis
Acute heart failure reduced EF exacerbation--with exacerbation presented as cough--cont diuresis--coreg and valsartan started--transfer to IVU--had cardiac cath at [facility] < 2 months ago--awaiting records-- priced meds for d/c when ready.
Weight is down 12 kg since admission. Diuretics now on hold as per cardiology.
Cardiology holding off on cardiac catheterization due to bowel obstruction.
ERIN--supposed to be using CPAP.
Colonic ileus -barium enema concerning for abrupt narrowing and twisting of the colon at the rectosigmoid junction without transition of contrast.
Awaiting flexible sigmoidoscopy and rectal tube placement today by GI.
Chronic dysphagia -possibly esophageal dysphagia as noted by speech therapy. GI to address once stable.
Presumed developmental delay
ERIN -nonadherent with CPAP at home. Compliant with CPAP in the hospital.
Obesity due to excess calories
DVT prophylaxis--subcu Lovenox
Full code
Anticipated Discharge: > 48 hours
Subjective/Interval History
-
Date of Service: March 04, 2025
Patient seen and examined. Sleeping when I walked in. No complaints when awakened.
Objective Data
-
Labs:
Laboratory Results
03/04/25
04:25
Total Bilirubin 2.6 H
AST 27
ALT 30
Alkaline Phosphatase 83
Vital Signs:
Vital Signs
Temp Pulse Resp BP Pulse Ox
98.0 F 63 14 128/103 96
03/04/25 04:28 03/04/25 07:41 03/04/25 07:41 03/04/25 07:41 03/04/25 07:41
I&O
03/03/25 03/04/25 03/05/25
06:59 06:59 06:59
Intake Total 450 / 450 360 / 360
Output Total 1450 / 1450 2300 / 2300 350 / 350
Balance -1000 / -1000 -1940 / -1940 -350 / -350
Review of Systems
-
History Source: Patient
All other systems: Reviewed and negative
[2025-03-04] MEDS: DIOVAN 40 MG PO ×2 (09:33→21:01)
[2025-03-04] MEDS: COREG 6.25 MG PO ×2 (09:33→21:00)
[2025-03-04] MEDS: DESENEX/MITRAZOL/ZEASORB 1 APPLIC TOPICAL ×2 (09:34→21:01)
[2025-03-04] MEDS: LIDOCAINE 4% PATCH 1 PATCH TOPICAL (09:47)
[2025-03-04] MEDS: COLACE PO (09:50)
--- NOTE | 2025-03-04 11:13 | W.PN.CD ---
Today's Communication / Plan
-
Med adjustment
No cath until GI status improved
Dr. Stark is holding off on sending him for cath
Impression / Plan
-
Background: 64M with hypertension, heart failure (type unknown), and ERIN who presented to the ER with a chief complaint of shortness of breath.
Outpatient stress engineer: Unknown
Colonic ileus
-barium enema abnormal
- For flexible sigmoidoscopy and rectal tube
Acute on Chronic HFrEF from a dilated cardiomyopathy, LVEF 20-25%- severe, requiring hospitalization
- Improved
- Admit weight 129/125 kg
- Weight now 117 kg
- Move to Lasix PO tomorrow, currently on hold
- GDMT as tolerated:
-ELENITA/ARB/ARNI: Start s tomorrow sacubitril�valsartan it is $8 => currently Valsartan 40 bid
-SGLT2 inhibitor: will start Farxiga
-Aldosterone agonist: Will add low dose Aldactone 12.5 daily
-Beta milla: Start carvedilol 6.25 mg twice daily
-Isosorbide/Hydralazine:�Defer for now
-ICD: Reassess LVEF in 3 months for determination
- Trend daily weight, I/O, and BMP with diuresis and changes in medical therapy
HTN, improved
Dilated aortic root, 4.2 cm
ERIN, nonadherent with CPAP
Obesity, BMI 40, affects all aspects of care he would benefit from weight loss
Subjective: breathing improved belly still distended
Echo 02/28/2025
SUMMARY
1. Severely dilated LV with severely reduced systolic function.
2. LVEF is 20-25% by visual estimation. No LVH.
3. Dilated RV with normal systolic function.
4. No significant valvular disease. Normal estimated PASP of 22 mmHg.
5. Dilated aortic root at 4.2 cm.
6. No prior study available for comparison.
Physical Exam
Vital Signs/Labs
Vital Signs
Temp Pulse Resp BP Pulse Ox
98.0 F 69 14 119/70 96
03/04/25 04:28 03/04/25 09:33 03/04/25 07:41 03/04/25 09:33 03/04/25 07:41
03/03/25 03/04/25 03/05/25
06:59 06:59 06:59
Actual Weight 118.7 kg 117.2 kg
03/03/25 04:00
03/03/25 04:00
Magnesium 1.8 mg/dl (1.6-2.3) 03/03/25 04:00
Triglycerides 43 mg/dl (10-149) 02/28/25 04:09
LDL Cholesterol, Calc 78 mg/dl 02/28/25 04:09
VLDL Cholesterol, Calc 8 mg/dl (0-30) 02/28/25 04:09
HDL Cholesterol 43 mg/dl 02/28/25 04:09
02/27/25 02/28/25 03/02/25
17:12 08:15 04:44
Wwq-N-Ystkhsthrpk Pept 4890 0360 648
Physical Exam
Constitutional: No acute distress
EENT: Anicteric
Cardiovascular: Rhythm & rate is regular and Pedal edema is absent
Respiratory: Respiratory effort normal and Lungs clear to auscul.
GI: Soft
Data Reviewed
-
Date of Service: March 04, 2025
--- NOTE | 2025-03-04 11:58 | PTCARENOTE ---
Pt is AOx3, can be forgetful at times. No complaints of pain or discomfort. Abdomen firm/distended, no complaints on assessment. Enemas x2 given as ordered. Pt going to flex sig today. Report given to GI RN. Bed alarm on and audible. Call beltre
within reach.
--- NOTE | 2025-03-04 12:48 | W.PN.UPDATE ---
Update Note
Progress Note Update
Flex sig done
Dilated sigmoid colon encountere after decompressed rectosigmoid
Sigmoid colon decompressed
No mass or stricture seen
Exam to distal transverse colon
Decompression tube placed
REC:
Check OBS series to confirm position and reassess after decompression
[2025-03-04] MEDS: MIRALAX PO (15:09)
--- NOTE | 2025-03-04 15:24 | CM ---
Chart reviewed. Patient is independent of ADLS, lives with his ENOC in a [address], full flight of steps to enter, only CPAP DME. Patient's brother is POA. Patient's brother unable to locate the POA medical form. Gave patient an Advance Directive
and reviewed the information with him and his brother. Follow up with [employer], patient lives in [place] so [employer] unable to assist with waiver services. Voicemail left with [place] [facility] for referral on waiver services. CM to follow
[2025-03-04] MEDS: LOVENOX 40 MG SC (17:55)
[2025-03-04] MEDS: COLACE 100 MG PO (21:00)
[2025-03-04] MEDS: REMOVE LIDOCAINE PATCH 1 PATCH REMOVE (21:01)
[2025-03-05] VITALS (12 sets, daily range): BP systolic 91–129; BP diastolic 59–94; PULSE 69–84; O2SAT 99; BMI 38.1
--- NOTE | 2025-03-05 00:36 | PTCARENOTE ---
Assumed care at 1900.Patient is aaox3, cooperative with POC. SR/SB with frequent PVC's, HR 50-70's. Abdomen round large, non-tender, passing flatus, decompressing tube in place. Tolerating full liquid diet. Voiding in the bathroom with assist x1,
urine dark yellow. Bed and chair alarms in place, call beltre in reach
[2025-03-05 04:07] LABS: Blood Urea Nitrogen 13 mg/dl (9-20); Calcium 9.1 mg/dl (8.4-10.2); Carbon Dioxide 30 mmol/L (22-30); Chloride 100 mmol/L (98-107); Estimated Creatinine Clearance 106 ml/min; Glucose 90 mg/dl (70-99); Potassium 3.6 mmol/L (3.5-5.1); Sodium 135 mmol/L (135-145); eGFR > 60.00
--- NOTE | 2025-03-05 05:02 | DOWNTIME ---
There was a [employer] Client [employer] Downtime on 03/05/2025 from 0100 to 03/05/2025 at 0215. Downtime documentation of patient's care, including medication administrations, has been reconciled in the electronic record per guidelines. Refer to the
patient's paper chart under the miscellaneous tab to see printed paper medication records and downtime forms.
--- NOTE | 2025-03-05 08:02 | W.PN.HOSP.TC ---
Today's Communication/Plan
-
Speech therapy follow-up
Assessment / Plan
Assessment / Plan
Gen-awake, NAD, obese
HEENT-NC, AT, anicteric, clear oral mm
Neck-supple
CV-reg, no M, +S1/S2
Lungs-clear B/L
Abd-distended but nontender
Ext-no edema
Musculoskeletal-no cyanosis, clubbing
Skin-warm and dry
Neuro-grossly non-focal
Psych-calm, cooperative
Hypertensive urgency/essential hypertension -blood pressure improved overall. On coreg and valsartan with plans to switch to Entresto (Entresto $1 copay with limit of 6 pills/day and Jardiance/Farxiga $3 for 30 pills per CM)--echocardiogram with EF
20-25%--pro-BNP 4890 now down to 648--coreg and valsartan started--renal US neg for renal artery stenosis
Acute heart failure reduced EF exacerbation--with exacerbation presented as cough--cont diuresis--coreg and valsartan started--transfer to IVU--had cardiac cath at [facility] < 2 months ago--awaiting records-- priced meds for d/c when ready.
Weight is down 13 kg since admission. Now on oral Lasix.
Cardiology holding off on cardiac catheterization due to bowel obstruction.
ERIN--supposed to be using CPAP.
Colonic ileus -barium enema concerning for abrupt narrowing and twisting of the colon at the rectosigmoid junction without transition of contrast.
Flexible sigmoidoscopy done 03/04 without stenosis or obstruction/stricture. Decompressive tube placed. Follow-up abdominal x-ray with moderate residual fecal material.
Chronic dysphagia -possibly esophageal dysphagia as noted by speech therapy. GI to address once stable. Awaiting speech therapy follow-up. Tolerating full liquids.
Presumed developmental delay
ERIN -nonadherent with CPAP at home. Compliant with CPAP in the hospital.
Obesity due to excess calories
DVT prophylaxis--subcu Lovenox
Full code
Anticipated Discharge: > 48 hours
Subjective/Interval History
-
Date of Service: March 05, 2025
Patient seen and examined. No complaints.
Objective Data
-
Labs:
Laboratory Results
03/05/25
03:03
Sodium 135
Potassium 3.6
Chloride 100
Carbon Dioxide 30
BUN 13
Creatinine 0.9
Glucose 90
Calcium 9.1
Vital Signs:
Vital Signs
Temp Pulse Resp BP Pulse Ox
97.2 F 76 20 129/94 100
03/05/25 07:14 03/05/25 07:13 03/05/25 07:14 03/05/25 07:13 03/05/25 07:14
I&O
03/04/25 03/05/25 03/06/25
06:59 06:59 06:59
Intake Total 360 / 360 240 / 240
Output Total 2300 / 2300 1375 / 1375
Balance -1940 / -1940 -1135 / -1135
Review of Systems
-
History Source: Patient
All other systems: Reviewed and negative
[2025-03-05] MEDS: ALDACTONE 12.5 MG PO (08:49)
[2025-03-05] MEDS: COREG 6.25 MG PO ×2 (08:49→20:12)
[2025-03-05] MEDS: LASIX 40 MG PO (08:49)
[2025-03-05] MEDS: FARXIGA 10 MG PO (08:49)
[2025-03-05] MEDS: DIOVAN 40 MG PO ×2 (08:49→20:14)
--- NOTE | 2025-03-05 09:40 | W.PN.CD ---
Today's Communication / Plan
-
No HF med adjustment for 1-2 weeks unless BP needs more control
Cath once GI status allows
Impression / Plan
-
Background: 64M with hypertension, HFrEF, and ERIN who presented to the ER with a chief complaint of shortness of breath.
Outpatient metal base blocker: Unknown
Colonic ileus
-barium enema abnormal
- For flexible sigmoidoscopy and rectal tube
Cardiomyopathy
- Dr. Stark plans cath once GI status allows
Acute on Chronic HFrEF from a dilated cardiomyopathy, LVEF 20-25%- severe, requiring hospitalization
- Improved
- Admit weight 129/125 kg and Current weight 116.8 kg
- pBNP on admit 4890 and and now 538
- GDMT as tolerated:
- Lasix 40 PO daily
-ELENITA/ARB/ARNI:=> currently Valsartan 40 bid (later increase dose and if BP allows then later can move to Entresto, cheap)
-SGLT2 inhibitor: on Farxiga
-Aldosterone agonist: on Aldactone 12.5 daily (later increase to 25 daily)
-Beta milla: On carvedilol 6.25 mg twice daily (later increase dose to goal)
-Isosorbide/Hydralazine:�Defer for now
-ICD: Reassess LVEF once on max meds for 3 months for determination
- Trend daily weight, I/O, and BMP with diuresis and changes in medical therapy
HTN, improved
Dilated aortic root, 4.2 cm
ERIN, nonadherent with CPAP, using today
Obesity, BMI 40, affects all aspects of care he would benefit from weight loss
Subjective: breathing improved belly better
Echo 02/28/2025
SUMMARY
1. Severely dilated LV with severely reduced systolic function.
2. LVEF is 20-25% by visual estimation. No LVH.
3. Dilated RV with normal systolic function.
4. No significant valvular disease. Normal estimated PASP of 22 mmHg.
5. Dilated aortic root at 4.2 cm.
6. No prior study available for comparison.
Physical Exam
Vital Signs/Labs
Vital Signs
Temp Pulse Resp BP Pulse Ox
97.2 F 76 20 129/94 100
03/05/25 07:14 03/05/25 07:13 03/05/25 07:14 03/05/25 07:13 03/05/25 07:14
03/04/25 03/05/25 03/06/25
06:59 06:59 06:59
Actual Weight 117.2 kg 116.8 kg
03/03/25 04:00
03/05/25 03:03
Magnesium 1.8 mg/dl (1.6-2.3) 03/03/25 04:00
Triglycerides 43 mg/dl (10-149) 02/28/25 04:09
LDL Cholesterol, Calc 78 mg/dl 02/28/25 04:09
VLDL Cholesterol, Calc 8 mg/dl (0-30) 02/28/25 04:09
HDL Cholesterol 43 mg/dl 02/28/25 04:09
02/27/25 02/28/25 03/02/25
17:12 08:15 04:44
Vpe-O-Rxewrxyenoi Pept 4890 [id number] 648
03/05/25
03:03
Oji-L-Skarnpzwohv Pept 538
Physical Exam
Constitutional: No acute distress
EENT: Anicteric
Cardiovascular: Rhythm & rate is regular and Pedal edema is absent
Respiratory: Respiratory effort normal and Lungs clear to auscul.
GI: Soft and Distention absent
Neuro/Psych: Alert
Data Reviewed
-
Date of Service: March 05, 2025
[2025-03-05] MEDS: LIDOCAINE 4% PATCH 1 PATCH TOPICAL (09:42)
[2025-03-05] MEDS: COLACE 100 MG PO ×2 (09:42→20:11)
[2025-03-05] MEDS: MIRALAX 17 GRAMS PO (09:42)
[2025-03-05] MEDS: DESENEX/MITRAZOL/ZEASORB 1 APPLIC TOPICAL ×2 (09:43→20:11)
--- NOTE | 2025-03-05 10:24 | CM ---
Addendum entered by Rachel Calero RN 03/05/25 15:29:
PT evaluation recommending HH. Referral sent to [facility] for VN. Patient and ENOC who patient lives with agreeable. Plan is for the patient to return home with [facility] VN and Waiver services
Addendum entered by Rachel Calero RN 03/05/25 15:28:
Follow up with Anai, Patient was assessed on 07/30/24 and was approved for the waiver program. I notified the patient and his brother Teddy. Mo to follow up with the financial dept at [phone] and then they will set him up with a service
coordinator.
Original Note:
Chart reviewed. Patient is independent of ADLS, lives with his ENOC in a 2 [address], full flight of stairs to enter, has a CPAP machine at home. Referral sent today to [facility] for waiver services. I spoke to Anai at [phone].
Plan is for the patient to return home. CM to follow
--- NOTE | 2025-03-05 11:34 | W.PN.GI.CBS2 ---
Today's Communication / Plan
-
Passing flatus and feeling better
Continue miralax and await BMs
OK for cardiac cath at this point
Advance to regular diet and have Speech reeval
Keep rectal tube in for now, although no stool in bag. Can d/c once bowel function resumes
Assessment / Plan
-
64-year-old male with past medical history of hypertension, sickle cell trait, heart failure, obstructive sleep apnea, intermittent solid food dysphagia for 2 months, chronic constipation for 2 years and left hip fracture status post repair
presents to the emergency room on 02/27/2025 for cough, shortness of breath and inability to lie flat. The patient had an echo performed that showed an EF of 20 to 25%, significant hypertension in the 170s/120s, now treated and currently in the
120's/ 80s. Continues on IV Lasix, Coreg, valsartan with eventual plans for right/left heart cath, currently on hold given GI issues. The patient had a chest x-ray with obstruction series that showed diffuse gaseous distention of the colon and small
bowel with prominent loop of bowel projecting over the right hemiabdomen showing severe ileus or distal bowel obstruction. Volvulus was possible. CT of the abdomen and pelvis with oral contrast showed diffuse gaseous distended of the small bowel
and colon most pronounced in the sigmoid colon with distal tapering without definite obstructing mass or volvulus. Repeat x-ray on 03/01 showed interval improvement in gaseous distention of the sigmoid colon. Suggesting colonic ileus. Barium enema
today showed abrupt narrowing and 'twisting' of the colon at the rectosigmoid junction without any contrast to be passed further into the sigmoid colon limiting evaluation. We are asked to evaluate for this as well as the patient's complaints of
intermittent solid food dysphagia ongoing for the past 2 months. Patient's dysphagia is to solid food only. Intermittent for the past 2 months. Has had to require some intermittent force regurgitation as well as having to drink liquids to get the
food down. WBC 5.3, hemoglobin 15.5, hematocrit 42.5, platelets 205, sodium 136, potassium 4.1, chloride 99, CO2 29, BUN 22, creatinine 1.2, glucose 88, total bilirubin 2.2, AST 26, ALT 32, alk phos 78. Did discuss with cardiology who gave the okay
with procedures at the present time.
Impression:
Colonic distention down to rectosigmoid junction s/p flex sig/decompression tube 03/04
Dysphagia, improved following decompression
Abrupt narrowing and 'twisting' of colon at rectosigmoid junction on Barium enema/CT with gaseous distention/ distal tapering sigmoid colon
Chronic constipation x 2 years
Solid food dysphagia-> intermittent x 2 months
HFrEF 20-25%
Hypertensive urgency
ERIN
Sickle cell trait
Subjective
Subjective
Date of Service: March 05, 2025
Passing flatus and some mucus. Abd feels softer. Denies nausea. Wants to eat
Objective
Data Reviewed
Laboratory Data:
Laboratory Results
03/03/25 04:00
03/05/25 03:03
Laboratory Results
Magnesium 1.8 mg/dl (1.6-2.3) 03/03/25 04:00
Total Bilirubin 2.6 mg/dl (0.2-1.3) H 03/04/25 04:25
AST 27 U/L (17-59) 03/04/25 04:25
ALT 30 U/L (0-50) 03/04/25 04:25
Alkaline Phosphatase 83 U/L (38-126) 03/04/25 04:25
Vital Signs and I&O:
Vital Signs
Temp Pulse Resp BP Pulse Ox
97.2 F 76 20 129/94 100
03/05/25 07:14 03/05/25 07:13 03/05/25 07:14 03/05/25 07:13 03/05/25 07:14
I&O
03/04/25 03/05/25 03/06/25
06:59 06:59 06:59
Intake Total 360 / 360 240 / 240
Output Total 2300 / 2300 1375 / 1375
Balance -1939 / -1939 -1134 / -113
Physical Exam
Physical Exam
GI: Soft, Non Distended and Non Tender
--- NOTE | 2025-03-05 16:24 | PTCARENOTE ---
Pt's rectal tube was dislodged while on toilet having a BM. Dr. Cm made aware, to leave out.
[2025-03-05] MEDS: LOVENOX 40 MG SC (17:22)
[2025-03-05] MEDS: REMOVE LIDOCAINE PATCH REMOVE (20:12)
--- NOTE | 2025-03-05 21:55 | PTCARENOTE ---
Rec'd pt at change of shift. Pt AAO*3, VSS, and SR on TELE monitor with PVC's and Bijeminy. PT denies any pain or discomfort. Currently resting with call beltre in reach. See MAR and flowchart for full pt care and assessment. Pt NPO after
midnight for possible cath in AM.
[2025-03-05] MEDS: OCEAN, SALINE MIST 1 SPRAYS NASAL (23:41)
[2025-03-06] VITALS (11 sets, daily range): BP systolic 110–136; BP diastolic 73–96; PULSE 71; BMI 38.3
[2025-03-06 04:07] LABS: Blood Urea Nitrogen 18 mg/dl (9-20); Calcium 8.9 mg/dl (8.4-10.2); Carbon Dioxide 30 mmol/L (22-30); Chloride 100 mmol/L (98-107); Estimated Creatinine Clearance 87 ml/min; Glucose 92 mg/dl (70-99); Magnesium 2.0 mg/dl (1.6-2.3); Potassium 3.7 mmol/L (3.5-5.1); Sodium 136 mmol/L (135-145); eGFR > 60.00
[2025-03-06] MEDS: ASPIRIN 325 MG PO (05:39)
--- NOTE | 2025-03-06 07:55 | W.PN.HOSP.TC ---
Addendum entered and electronically signed by Connor Hickman DO 03/06/25 12:52:
Updated patient's brother and sister on the phone with discharge instructions. All questions answered.
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
Currently patient is in the middle of getting insurance, does not have a PCP.
Addendum entered and electronically signed by Connor Hickman DO 03/06/25 12:44:
Spoke with cardiology and GI services, okay to discharge home today. Outpatient follow-up.
VN ordered. Discussed with case management.
Original Note:
Today's Communication/Plan
-
Catheterization today
Oral potassium
Assessment / Plan
Assessment / Plan
Gen-awake, NAD, obese
HEENT-NC, AT, anicteric, clear oral mm
Neck-supple
CV-reg, no M, +S1/S2
Lungs-clear B/L
Abd-distended but nontender
Ext-no edema
Musculoskeletal-no cyanosis, clubbing
Skin-warm and dry
Neuro-grossly non-focal
Psych-calm, cooperative
Hypertensive urgency/essential hypertension -blood pressure improved overall. Some low readings noted. On coreg and valsartan with plans to switch to Entresto (Entresto $1 copay with limit of 6 pills/day and Jardiance/Farxiga $3 for 30 pills per
CM)--echocardiogram with EF 20-25%--pro-BNP 4890 now down to 648--coreg and valsartan started--renal US neg for renal artery stenosis
Acute heart failure reduced EF exacerbation--with exacerbation presented as cough--cont diuresis--coreg and valsartan started--transfer to IVU--had cardiac cath at [facility] < 2 months ago--awaiting records-- priced meds for d/c when ready.
Weight is down 13 kg since admission. Now on oral Lasix.
Cardiac catheterization today as per cardiology.
ERIN--supposed to be using CPAP.
Colonic ileus -barium enema concerning for abrupt narrowing and twisting of the colon at the rectosigmoid junction without transition of contrast.
Flexible sigmoidoscopy done 03/04 without stenosis or obstruction/stricture. Decompressive tube placed with resolution of ileus, multiple bowel movements yesterday and overnight. Tube spontaneously came out.
Chronic dysphagia -possibly esophageal dysphagia as noted by speech therapy. GI to address once stable. Awaiting speech therapy follow-up. Speech therapy evaluated 03/05, recommendation for solid food with thin liquids.
Presumed developmental delay
ERIN -nonadherent with CPAP at home. Compliant with CPAP in the hospital.
Obesity due to excess calories
DVT prophylaxis--subcu Lovenox
Full code
Anticipated Discharge: 24 - 48 hours
Subjective/Interval History
-
Date of Service: March 06, 2025
Patient seen and examined, no complaints.
Objective Data
-
Labs:
Laboratory Results
03/06/25
03:12
Sodium 136
Potassium 3.7
Chloride 100
Carbon Dioxide 30
BUN 18
Creatinine 1.1
Glucose 92
Calcium 8.9
Vital Signs:
Vital Signs
Temp Pulse Resp BP Pulse Ox
98.8 F 76 20 117/76 94
03/06/25 07:51 03/06/25 06:00 03/06/25 07:51 03/06/25 03:13 03/06/25 07:51
I&O
03/05/25 03/06/25 03/07/25
06:59 06:59 06:59
Intake Total 240 / 240 480 / 480
Output Total 1375 / 1375 600 / 600
Balance -1135 / -1135 -120 / -120
Review of Systems
-
History Source: Patient
All other systems: Reviewed and negative
--- NOTE | 2025-03-06 08:00 | PTCARENOTE ---
report received from previous RN at change of shift. Pt resting comfortably in bed. arouses easily- AAOX3, forgetful. ambulated in room with 1 assist and rolling walker. NSR on telemetry with pvcs heart rate 70-90s. pulses palpable. pt on room air,
lung sounds diminished throughout. dry nonproductive cough- pt reports is chronic allergies. hypoactive bowel sounds- abdomen round, obese, firm. pt reports multiple bowel movements overnight. voiding without difficulty. pt updated on plan of care.
currently NPO for cardiac cath today. see worklist for full nursing assessment.
[2025-03-06] MEDS: KCL 20 MEQ PO (08:45)
[2025-03-06] MEDS: FARXIGA 10 MG PO (08:46)
[2025-03-06] MEDS: DESENEX/MITRAZOL/ZEASORB 1 APPLIC TOPICAL (08:46)
[2025-03-06] MEDS: COREG 6.25 MG PO (08:46)
[2025-03-06] MEDS: DIOVAN 40 MG PO (08:46)
[2025-03-06] MEDS: COLACE 100 MG PO (08:46)
[2025-03-06] MEDS: ALDACTONE 12.5 MG PO (08:46)
[2025-03-06] MEDS: LIDOCAINE 4% PATCH 1 PATCH TOPICAL (08:47)
--- NOTE | 2025-03-06 09:14 | W.PN.CD ---
Today's Communication / Plan
-
Cardiac catheterization today to clarify coronary anatomy, assess filling pressures.
Impression / Plan
-
Background: 64M with hypertension and ERIN who presented to the ER with hypertensive emergency and acute on chronic (?) HFrEF, subsequently developing rectosigmoid large bowel obstruction/ileus.
#Rectosigmoid colonic ileus/obstruction
-Barium enema abnormal.
-Flexible sigmoidoscopy showed dilated sigmoid colon after decompressed rectosigmoid - no obvious mass or lesion. Decompression tube placed.
-Management per GI/CRS.
#Cardiomyopathy
-New diagnosis.
-Multiple attempts to retrieve records from [facility] have been unsuccessful.
-GI is ok with R/L cath today to clarify coronary anatomy as part of work up for new [employer].
#HFrEF
-Acute on Chronic (?), threat to life.
-LVEF 20-25% with biventricular dilation.
-Admit weight 129/125 kg and Current weight 116.8 kg.
-GDMT as tolerated:
-Diuretics: Furosemide 40 PO daily.
-ELENITA/ARB/ARNI: Currently valsartan 40 bid (plan to increase dose and if BP allows then later can move to sacubitril/valsartan, cheap).
-SGLT2 inhibitor: Dapagliflozin 10 mg daily.
-MRA: Spironolactone 12.5 daily (later increase to 25 mg daily).
-Beta milla: Carvedilol 6.25 mg twice daily (plan to increase dose to goal).
-ICD: Not currently indicated. Repeat echo after three months of maximum tolerated GDMT.
- Trend daily weight, I/O, and BMP with diuresis and changes in medical therapy
#HTN
-Acute on chronic.
-Presented with hypertensive emergency, now improved.
-Continue valsartan, carvedilol, spironolactone.
#Dilated aortic root
-Unclear chronicity (4.2 cm).
-Maintain beta milla/ARB.
-Routine surveillance.
#ERIN
-Chronic, nonadherent with CPAP at home.
-Tolerating today/in hospital.
#Obesity
-Chronic, stable.
-BMI 40.
-Affects all aspects of care he would benefit from weight loss.
Subjective/Interval History:
Rectal tube dislodged yesterday after BM, remains out.
Weight increased to 117.6 kg <-- 116.8 kg.
DATA:
Flex Sig, 03/04/2025:
Impression:
- Preparation of the colon was fair.
- Dilated in the sigmoid colon.
- No specimens collected.
- There is no endoscopic evidence of mass in the recto-sigmoid
colon.
Echo, 02/28/2025:
SUMMARY
1. Severely dilated LV with severely reduced systolic function.
2. LVEF is 20-25% by visual estimation. No LVH.
3. Dilated RV with normal systolic function.
4. No significant valvular disease. Normal estimated PASP of 22 mmHg.
5. Dilated aortic root at 4.2 cm.
6. No prior study available for comparison.
Physical Exam
Vital Signs/Labs
Vital Signs
Temp Pulse Resp BP Pulse Ox
37.1 C 89 20 131/88 94
03/06/25 07:51 03/06/25 08:46 03/06/25 07:51 03/06/25 08:46 03/06/25 07:51
03/04/25 03/05/25 03/06/25
11:59 11:59 11:59
Actual Weight 117.2 kg 116.8 kg 117.6 kg
03/03/25 04:00
03/06/25 03:12
Magnesium 2.0 mg/dl (1.6-2.3) 03/06/25 03:12
Triglycerides 43 mg/dl (10-149) 02/28/25 04:09
LDL Cholesterol, Calc 78 mg/dl 02/28/25 04:09
VLDL Cholesterol, Calc 8 mg/dl (0-30) 02/28/25 04:09
HDL Cholesterol 43 mg/dl 02/28/25 04:09
02/27/25 02/28/25 03/02/25
17:12 08:15 04:44
Pqb-N-Ddrizpcfmme Pept 4890 [id number] 648
03/05/25
03:03
Zyk-C-Tbhuimyhthu Pept 538
Physical Exam
Constitutional: No acute distress and Comfortable
EENT: Anicteric and Moist mucous membranes
Cardiovascular: Rhythm & rate is regular, Pedal edema is absent, JVD pressure is normal, S1S2 is normal and Murmur/rub/gallop absent
Respiratory: Respiratory effort normal, Lungs clear to auscul., Wheeze Absent, Crackles Absent and Rhonchi Absent
GI: Soft, Distention absent, Flat, Non tender and Normal bowel sounds
Neuro/Psych: AO x 3
Data Reviewed
-
Date of Service: March 06, 2025
Medical Decision Making: Reviewed Test Results, Independent Historian Assessment and Test Interpretation
EKG: Tracing Personally Visualized and interpreted and Report Reviewed by me
Echo: Report Reviewed by me
X-Ray/CT/US/MRI/NUC/PET: Image Personally Visualized and interpreted and Report Reviewed by me
Labs: Labs Reviewed by me
--- NOTE | 2025-03-06 10:52 | ITS.CL.CATH ---
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
Cardiac Catheterization
Procedure Report:
CARDIAC CATHETERIZATION REPORT
Date of Procedure: 03/06/2025
Referring: Grabiel Leigh M.D.
Indication: New diagnosis of cardiomyopathy, assessment of filling pressures/HFrEF.
PROCEDURE:
1. Right heart catheterization.
2. Coronary angiography.
3. Left heart catheterization.
A total of 15 minutes of procedural/moderate sedation was utilized. An independent er medical technician was present to assist with and help manage the patient's level of consciousness and physiologic status.
ACCESS:
1. 6 Fijian right radial artery using a modified Seldinger.
2. 5 Fijian right antecubital vein using a previously placed IV.
CATHETERS:
1. 5 Fijian balloon wedge.
2. 5 Fijian JL 3.5.
3. 5 Fijian JR4.
HEMODYNAMIC DATA
Weight (kg): 117.5
AO (s/d/x, mmHg): 119/80/97
LV (s/x, mmHg): 119/10
PCWP (a/v/x, mmHg): 14/12/10
PA (s/d/x, mmHg): 46/24/31
RV (s/x, mmHg): 46/5
RA (a/v/x, mmHg): 6/12/5
SVC SvO2 (%): 76.3
IVC SvO2 (%): Not obtained.
RA SvO2 (%): Not obtained.
RV SvO2 (%): Not obtained.
PA SvO2 (%): 68.7
SaO2 (%): 90.6
Hbg (g/dL): 15.0
SUPRIYA
CO (L/min): 6.26
CI (L/min/m2): 2.72
Thermodilution
CO (L/min): Not performed.
CI (L/min/m2): Not performed.
TPG (mmHg): 21
PVR (Pierre Units): 3.35
SVR (dynes*seconds*cm^-5): 1214
AVO2 Diff (Volume %): 4.47
AV gradient (x, mmHg): None.
AV area (cm2): Normal.
MV gradient (x, mmHg): Not obtained.
MV area (cm2): Not obtained.
LEFT VENTRICULOGRAPHY: Not performed.
AORTOGRAPHY: Not performed.
CORONARY ANGIOGRAPHY
Dominance: Right.
Left Main: Large size, trifurcating vessel. There is no coronary artery disease.
LAD: Large size vessel giving rise to 1 significant diagonal. There is no coronary artery disease.
Ramus: Large size vessel supplying the majority of the lateral wall. There is no coronary artery disease.
Circumflex: Large size, nondominant vessel giving rise to 2 notable obtuse marginals before terminating as a small posterolateral branch. There is no coronary artery disease. There is severe tortuosity of the obtuse marginals.
RCA: Large size, dominant vessel. There is moderate to severe tortuosity of the proximal and mid RCA. The RPDA is a small vessel emerging from the distal RCA that supplies the proximal inferior septum. The mid and distal inferior septum is
supplied by an extension from the right ventricular marginal branch. There is no coronary artery disease.
INTERVENTIONS
None.
Closure Device: Vascular band for the right radial artery, manual pressure for the right antecubital vein.
Radiation dose (mGy): 559.31
DAP (cm2.Gy): 39.6511
Fluoroscopy time (minutes): 5.8
CONCLUSIONS:
1. Right dominant circulation with large vessels and no coronary artery disease.
2. Normal filling pressures (LVEDP = 10 mmHg, PCWP = 10 mmHg at 117.5 kg).
3. Mild, precapillary pulmonary hypertension (mean PA = 31 mmHg, PCWP = 10 mmHg, cardiac output = 6.26 L/min, PVR = 3.35 Pierre units).
4. Normal cardiac index (2.72 L/min/m�).
RECOMMENDATIONS:
1. Expectant management after cardiac catheterization via right radial/antecubital approach.
2. Limited weight bearing on the right wrist for one week.
3. Maintain current level of diuretics to allow mild increase in filling pressures given the severity of his ejection fraction.
4. OMT/GDMT as hemodynamics will tolerate.
Copy to: Grabiel Leigh M.D., Se Stark M.D.
Jl Singh DO, FACC, FACP
--- NOTE | 2025-03-06 10:59 | PTCARENOTE ---
received patient post cardiac cath. Right radial TR band in place, + radial pulse. right brachial site CDI. pulse ox 100% on room air. pt reports pain in right lower extremity that he describes as chronic leg pain.
[2025-03-06] MEDS: LASIX 40 MG PO (11:04)
[2025-03-06] MEDS: MIRALAX 17 GRAMS PO (11:04)
[2025-03-06] MEDS: TYLENOL 650 MG PO (11:04)
--- NOTE | 2025-03-06 11:52 | W.PN.GI.CBS2 ---
Today's Communication / Plan
-
Continue miralax to treat constipation.
Tolerating POs
He reports intermittent dysphagia to meat/chicken. This can be evaluated as OP after d/c. I left my contact on the d/c instructions
Will sign off. Please call back if needed
Assessment / Plan
-
64-year-old male with past medical history of hypertension, sickle cell trait, heart failure, obstructive sleep apnea, intermittent solid food dysphagia for 2 months, chronic constipation for 2 years and left hip fracture status post repair
presents to the emergency room on 02/27/2025 for cough, shortness of breath and inability to lie flat. The patient had an echo performed that showed an EF of 20 to 25%, significant hypertension in the 170s/120s, now treated and currently in the
120's/ 80s. Continues on IV Lasix, Coreg, valsartan with eventual plans for right/left heart cath, currently on hold given GI issues. The patient had a chest x-ray with obstruction series that showed diffuse gaseous distention of the colon and small
bowel with prominent loop of bowel projecting over the right hemiabdomen showing severe ileus or distal bowel obstruction. Volvulus was possible. CT of the abdomen and pelvis with oral contrast showed diffuse gaseous distended of the small bowel
and colon most pronounced in the sigmoid colon with distal tapering without definite obstructing mass or volvulus. Repeat x-ray on 03/01 showed interval improvement in gaseous distention of the sigmoid colon. Suggesting colonic ileus. Barium enema
today showed abrupt narrowing and 'twisting' of the colon at the rectosigmoid junction without any contrast to be passed further into the sigmoid colon limiting evaluation. We are asked to evaluate for this as well as the patient's complaints of
intermittent solid food dysphagia ongoing for the past 2 months. Patient's dysphagia is to solid food only. Intermittent for the past 2 months. Has had to require some intermittent force regurgitation as well as having to drink liquids to get the
food down. WBC 5.3, hemoglobin 15.5, hematocrit 42.5, platelets 205, sodium 136, potassium 4.1, chloride 99, CO2 29, BUN 22, creatinine 1.2, glucose 88, total bilirubin 2.2, AST 26, ALT 32, alk phos 78. Did discuss with cardiology who gave the okay
with procedures at the present time.
Impression:
Colonic distention down to rectosigmoid junction s/p flex sig/decompression tube 03/04
Dysphagia, improved following decompression
Abrupt narrowing and 'twisting' of colon at rectosigmoid junction on Barium enema/CT with gaseous distention/ distal tapering sigmoid colon
Chronic constipation x 2 years
Solid food dysphagia-> intermittent x 2 months
HFrEF 20-25%
Hypertensive urgency
ERIN
Sickle cell trait
Subjective
Subjective
Date of Service: March 06, 2025
Passing multiple BMs. Rectal tube fell out. Tolerating POs without difficulty. Speech OK with regular diet/thin
Objective
Data Reviewed
Laboratory Data:
Laboratory Results
03/03/25 04:00
03/06/25 03:12
Laboratory Results
Magnesium 2.0 mg/dl (1.6-2.3) 03/06/25 03:12
Total Bilirubin 2.6 mg/dl (0.2-1.3) H 03/04/25 04:25
AST 27 U/L (17-59) 03/04/25 04:25
ALT 30 U/L (0-50) 03/04/25 04:25
Alkaline Phosphatase 83 U/L (38-126) 03/04/25 04:25
Vital Signs and I&O:
Vital Signs
Temp Pulse Resp BP Pulse Ox
98.3 F 67 22 121/80 96
03/06/25 11:17 03/06/25 11:15 03/06/25 11:17 03/06/25 11:15 03/06/25 11:17
I&O
03/05/25 03/06/25 03/07/25
06:59 06:59 06:59
Intake Total 240 / 240 480 / 480
Output Total 1375 / 1375 600 / 600
Balance -1135 / -1135 -120 / -120
Physical Exam
Physical Exam
GI: Soft, Non Distended and Non Tender
--- NOTE | 2025-03-06 12:43 | W.DS.TRANS ---
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
-
Discharge Instructions:
Discharge Diagnosis/Procedures Hypertensive urgency, acute heart failure
exacerbation, colonic ileus, chronic dysphagia,
cardiac catheterization
Diet Regular
Activity As tolerated
Driving Restrictions No driving
Bathing Restrictions None
Other Services VN
Instructions:
Stand-Alone Forms: DC Instructions- Cath/EP Lab
Changes to Home Medications: No
Discharge Medications:
DC Medications w/original date entered in [employer] (formerly [employer])
carvedilol 6.25 mg tablet 6.25 mg PO BID #60 tabs 03/06/25
dapagliflozin propanediol 10 mg tablet 10 mg PO DAILY #30 tabs 03/06/25
docusate sodium 100 mg capsule 100 mg PO BID #60 caps 03/06/25
furosemide 40 mg tablet 40 mg PO DAILY #30 tabs 03/06/25
polyethylene glycol 3350 17 gram oral powder packet 17 g PO DAILY #0 ea 03/06/25
potassium chloride 20 mEq tablet,extended release(part/cryst) 20 meq PO DAILY #30 tabs 03/06/25
spironolactone 25 mg tablet 12.5 mg (1/2 x 25 mg) PO DAILY #30 tabs 03/06/25
valsartan 40 mg tablet 40 mg PO BID #60 tabs 03/06/25
Home Medication Changes
Pending Results: No
--- NOTE | 2025-03-06 13:33 | CM ---
I spoke with Annette First and the patient has a PCP assigned to him, [facility] Eddie Pal [phone]. I called the patient's brother Chepe and gave him this information. The patient no longer lives in [place], so I gave
him [facility]'s phone number to switch to for PCP. I also gave patient's brother the phone numbers for [facility] and [facility] to follow up with one of these. Dr Singh would like for the patient to follow up
with a mechanic sound technician, so I gave him two to choose from.
== END 2025-03-06 15:33 | disposition home health service (06) | DRG 286 ==
LOC: IVU 18:25
PROVIDERS: Internal Medicine Cardiovascular Disease; Nurse Practitioner; Specialist; ADMITTING PHYSICIAN Internal Medicine; ATTENDING PHYSICIAN Hospitalist; CONSULT PHYSICIAN Internal Medicine Cardiovascular Disease; CONSULT PHYSICIAN Internal Medicine Gastroenterology; CONSULT PHYSICIAN Surgery; EMERGENCY PHYSICIAN Emergency Medicine
PROC: 0D9N80Z Drainage of Sigmoid Colon with Drainage Device, Via Natural or Artificial Opening Endoscopic (ICD-10-PCS; 2025-03-04)
PROC: B2111ZZ Fluoroscopy of Multiple Coronary Arteries using Low Osmolar Contrast (ICD-10-PCS; 2025-03-06)
PROC: 4A023N8 Measurement of Cardiac Sampling and Pressure, Bilateral, Percutaneous Approach (ICD-10-PCS; 2025-03-06)
DX: I11.0 Hypertensive heart disease with heart failure (principal); I50.23 Acute on chronic systolic (congestive) heart failure; K56.7 Ileus, unspecified; I47.20 Ventricular tachycardia, unspecified; Z68.41 Body mass index [BMI] 40.0-44.9, adult; K59.39 Other megacolon; I42.0 Dilated cardiomyopathy; K59.81 Ogilvie syndrome; I16.0 Hypertensive urgency; I27.20 Pulmonary hypertension, unspecified; I77.810 Thoracic aortic ectasia; R62.50 Unspecified lack of expected normal physiological development in childhood; R13.10 Dysphagia, unspecified; E66.9 Obesity, unspecified; J45.909 Unspecified asthma, uncomplicated; G47.33 Obstructive sleep apnea (adult) (pediatric); D57.3 Sickle-cell trait; Z96.642 Presence of left artificial hip joint; Z88.0 Allergy status to penicillin; Z80.9 Family history of malignant neoplasm, unspecified
CPT/HCPCS: 71046; 74018; 74022; 74176; 74270; 80048; 80053; 80061; 80076; 82248; 83735; 83880; 84443; 84484; 85025; 85027; 86803; 87502; 87811; 92526; 92610; 93005; 93306; 93460; 93975; 94660; 94762; 96374; 97110; 97116; 97162; 99152; 99285; C1769; C1894; Q9950; Q9967